=== PATIENT | male | born 1985 | race American Indian/Alaskan Native ===

== ENCOUNTER 2018-02-03 02:56 | Inpatient (IN) | payer SELFPAY ==
[2018-02-03] MEDS ORDERED: ASPIRIN PO ONE (03:28)
[2018-02-03 03:52] LABS: Basophils # (Auto) 0.1 K/mm3 (0.0-0.1); Basophils % (Auto) 1.2 % (0.0-1.8); Eosinophils # (Auto) 0.3 K/mm3 (0.0-0.4); Eosinophils % (Auto) 4.9 % (0.0-4.3); Hematocrit 44.4 % (35.5-45.6); Hemoglobin 14.3 gm/dl (11.8-15.2); Lymphocytes # (Auto) 1.7 K/mm3 (1.2-5.4); Lymphocytes % (Auto) 23.8 % (13.4-35.0); Mean Corpuscular HGB Conc 32 % (32-34); Mean Corpuscular Hemoglobin 25 pg (28-32); Mean Corpuscular Volume 77 fl (84-94); Monocytes # (Auto) 0.7 K/mm3 (0.0-0.8); Platelet Count 206 K/mm3 (140-440); Red Blood Count 5.76 M/mm3 (3.65-5.03); Red Cell Distribution Width 14.6 % (13.2-15.2)
[2018-02-03] MEDS ORDERED: SUBLIMAZE IV ONE (04:27)
[2018-02-03] MEDS ORDERED: NACL 0.9% 500 ML 500 ML IV ONE (04:27)
[2018-02-03] MEDS ORDERED: NITROSTAT SL PRN (04:27)
--- NOTE | 2018-02-03 04:28 | Emergency Department Report ---
ED Chest Pain HPI - General Chief Complaint: Chest Pain Stated Complaint: CHEST AND ARM PAIN Time Seen by Provider: 02/03/18 04:18 Source: patient, RN notes reviewed Mode of arrival: Ambulatory Limitations: No Limitations - History of Present Illness Initial Comments: This is a 33-year-old gentleman who is not known to this provider previously. His primary care doctor is Dr. Clemente, and he endorses a past medical history of lupus, asthma, occasional tobacco use, and occasional cannabis consumption. The patient presents to the ER with complaint of nontraumatic central chest pain which does not radiate to the back, arms or neck. He also has simultaneous shoulder pain and trapezius pain. He reports his pain worsened at 3:00 this evening/morning. He reports he has shortness of breath but it is nonexertional. He denies DVT, pulmonary embolus risk factors, recent travel, recent surgery, recent immobility. He denies cocaine use. He denies hematemesis, bright red blood per rectum. MD Complaint: chest pain -: Gradual Onset: during rest Pain Location: substernal Severity: moderate Severity scale (0 -10): 7 Quality: tightness, aching, heaviness Consistency: constant Improves With: rest Worsens With: inspiration Aspirin use within the Past 7 Days: (0) No - Related Data On Oral Contraceptives: No Home Medications Medication Instructions Recorded Confirmed Last Taken Prednisone [predniSONE (Blanca) ER 1 mg PO QDAY 02/14/13 02/14/13 Unknown TAB] Previous Rx's Medication Instructions Recorded Last Taken Type Hydrocodone Bit/Acetaminophen 1 each PO Q8HR #20 tablet 02/14/13 Unknown Rx [Lortab 5-500 Tablet] Penicillin Vk [Veetids TAB] 500 mg PO QID #28 tablet 02/14/13 Unknown Rx Pantoprazole [Protonix] 40 mg PO QDAY #30 tablet 02/03/18 Unknown Rx Allergies Allergy/AdvReac Type Severity Reaction Status Date / Time No Known Allergies Allergy Unverified 02/14/13 18:45 Heart Score - HEART Score History: Moderately suspicious EKG: Non-specific Age: < 45 Risk factors: 1-2 risk factors Troponin: < normal limit HEART Score: 3 - Critical Actions Critical Actions: 0-3 pts:0.9-1.7%risk of adverse cardiac event.Candidate for discharge ED Review of Systems ROS: Stated complaint: CHEST AND ARM PAIN Other details as noted in HPI Constitutional: malaise Eyes: denies: eye discharge ENT: denies: epistaxis Respiratory: shortness of breath Cardiovascular: chest pain Gastrointestinal: denies: abdominal pain, nausea, vomiting, hematemesis, melena Genitourinary: denies: dysuria Musculoskeletal: back pain Skin: denies: lesions Neurological: weakness Psychiatric: anxiety Hematological/Lymphatic: denies: easy bleeding ED Past Medical Hx - Past Medical History Hx Asthma: Yes Additional medical history: Lupus - Surgical History Past Surgical History?: Yes Additional Surgical History: umbilical hernia - Social History Smoking Status: Current Every Day Smoker Substance Use Type: Alcohol - Medications Home Medications: Home Medications Medication Instructions Recorded Confirmed Last Taken Type Hydrocodone Bit/Acetaminophen 1 each PO Q8HR #20 tablet 02/14/13 Unknown Rx [Lortab 5-500 Tablet] Penicillin Vk [Veetids TAB] 500 mg PO QID #28 tablet 02/14/13 Unknown Rx Prednisone [predniSONE (Blanca) ER 1 mg PO QDAY 02/14/13 02/14/13 Unknown History TAB] Pantoprazole [Protonix] 40 mg PO QDAY #30 tablet 02/03/18 Unknown Rx ED Physical Exam - General Limitations: No Limitations General appearance: alert, in distress - Head Head exam: Present: atraumatic, normocephalic - Eye Eye exam: Present: normal appearance, EOMI. Absent: nystagmus - ENT ENT exam: Present: normal exam, normal orophraynx, mucous membranes moist, normal external ear exam - Neck Neck exam: Present: normal inspection, full ROM. Absent: tenderness, meningismus - Respiratory Respiratory exam: Present: normal lung sounds bilaterally. Absent: respiratory distress - Cardiovascular Cardiovascular Exam: Present: regular rate, normal rhythm, normal heart sounds. Absent: bradycardia, tachycardia, irregular rhythm, systolic murmur, diastolic murmur, rubs, gallop - GI/Abdominal GI/Abdominal exam: Present: soft, normal bowel sounds. Absent: distended, tenderness, guarding, rebound, rigid, pulsatile mass - Rectal Rectal exam: Present: deferred - Extremities Exam Extremities exam: Present: normal inspection, full ROM, other (2+ pulses noted in the bilateral upper, lower extremities. Compartments soft. No long bony tenderness. The pelvis is stable.). Absent: tenderness, pedal edema, joint swelling, calf tenderness - Back Exam Back exam: Present: normal inspection, full ROM. Absent: tenderness, CVA tenderness (R), paraspinal tenderness, vertebral tenderness - Neurological Exam Neurological exam: Present: alert, oriented X3, CN II-XII intact, other ( Extraocular movements intact. Tongue midline. No facial droop. Facial sensation intact to light touch in the V1, V2, V3 distribution bilaterally. 5 and 5 strength in 4 extremities.. Sensation is intact to light touch in 4 extremities.). Absent: motor sensory deficit - Psychiatric Psychiatric exam: Present: anxious - Skin Skin exam: Present: warm, dry, intact, normal color. Absent: rash ED Course Vital Signs 02/03/18 02/03/18 02/03/18 03:17 03:56 03:57 Temperature 97.8 F Pulse Rate 96 H 101 H 95 H Respiratory 18 26 H 22 Rate Blood Pressure 141/99 Blood Pressure 142/98 [Left] O2 Sat by Pulse 97 98 100 Oximetry 02/03/18 02/03/18 02/03/18 04:00 04:07 04:15 Temperature Pulse Rate 96 H 97 H Respiratory 16 19 Rate Blood Pressure 138/104 144/104 Blood Pressure [Left] O2 Sat by Pulse 99 99 99 Oximetry 02/03/18 02/03/18 02/03/18 05:00 07:00 07:56 Temperature 98.9 F Pulse Rate 95 H 95 H Respiratory 16 12 14 Rate Blood Pressure 147/99 135/85 Blood Pressure 129/85 [Left] O2 Sat by Pulse 99 99 97 Oximetry 02/03/18 02/03/18 02/03/18 08:00 08:09 08:46 Temperature Pulse Rate 94 H Respiratory 13 14 13 Rate Blood Pressure 125/86 124/88 Blood Pressure [Left] O2 Sat by Pulse 96 97 Oximetry 02/03/18 09:16 Temperature Pulse Rate 94 H Respiratory 16 Rate Blood Pressure 115/87 Blood Pressure [Left] O2 Sat by Pulse Oximetry - Reevaluation(s) Reevaluation #1: 02/03/18 04:33 Differential diagnosis, including but not limited to: GERD, gastritis, hiatal hernia, pneumonia, pulmonary embolus, acute coronary syndrome Assessment and plan: 33-year-old gentleman with lupus, with chest pain and shortness of breath. X-ray of the chest pending, CT scan of the chest pending. EKG nonspecific. We will treat his symptoms. We will reassess after imaging. 02/03/18 05:55 Reevaluation #2: 02/03/18 05:55 X-ray of the chest suggest pneumonia. CT scan of the chest interpretation is pending. Care is transferred to the oncoming physician, Dr. Hollins. If CT scan demonstrates pneumonia, and no other obvious complications, I would consider the patient suitable for trial of outpatient oral antibiotics. If pulmonary embolus is identified, or no obvious etiology for chest pain is identified, would admit the patient for further evaluation. YULISSA score - Yulissa Score Age > 65: (0) No Aspirin use within the Past 7 Days: (0) No 3 or more CAD Risk Factors: (0) No 2 or more Angina events in past 24 hrs: (0) No Known CAD with more than 50% Stenosis: (0) No Elevated Cardiac Markers: (0) No ST Deviation Greater than 0.5mm: (0) No YULISSA Score: 0 ED Medical Decision Making - Lab Data Result diagrams: 02/03/18 03:41 02/03/18 11:34 Vital Signs 02/03/18 02/03/18 02/03/18 03:17 03:56 03:57 Temperature 97.8 F Pulse Rate 96 H 101 H 95 H Respiratory 18 26 H 22 Rate Blood Pressure 141/99 Blood Pressure 142/98 [Left] O2 Sat by Pulse 97 98 100 Oximetry 02/03/18 02/03/18 04:00 04:07 Temperature Pulse Rate 96 H Respiratory 16 Rate Blood Pressure 138/104 Blood Pressure [Left] O2 Sat by Pulse 99 99 Oximetry Lab Results 02/03/18 Range/Units 03:41 WBC 7.1 (4.5-11.0) K/mm3 RBC 5.76 H (3.65-5.03) M/mm3 Hgb 14.3 (11.8-15.2) gm/dl Hct 44.4 (35.5-45.6) % MCV 77 L (84-94) fl MCH 25 L (28-32) pg MCHC 32 (32-34) % RDW 14.6 (13.2-15.2) % Plt Count 206 (140-440) K/mm3 Lymph % (Auto) 23.8 (13.4-35.0) % [place] % (Auto) 10.0 H (0.0-7.3) % Eos % (Auto) 4.9 H (0.0-4.3) % Baso % (Auto) 1.2 (0.0-1.8) % Lymph # 1.7 (1.2-5.4) K/mm3 [place] # 0.7 (0.0-0.8) K/mm3 Eos # 0.3 (0.0-0.4) K/mm3 Baso # 0.1 (0.0-0.1) K/mm3 Seg Neutrophils % 60.1 (40.0-70.0) % Seg Neutrophils # 4.2 (1.8-7.7) K/mm3 - EKG Data -: EKG Interpreted by Me EKG shows normal: sinus rhythm Rate: normal - EKG Data When compared to previous EKG there are: previous EKG unavailable 02/03/18 04:33 Sinus, 98 bpm, normal axis, QTC prolonged, motion artifact, Nonspecific interventricular conduction delay suggested on V2. , abnormal EKG, not a STEMI. - Radiology Data Radiology results: pending Critical care attestation.: If time is entered above; I have spent that time in minutes in the direct care of this critically ill patient, excluding procedure time. ED Disposition Clinical Impression: Chest pain Disposition: OP ADMIT IP TO THIS HOSP Is pt being admited?: Yes Does the pt Need Aspirin: Yes Condition: Good
--- NOTE | 2018-02-03 04:44 | XRay Report ---
FINAL REPORT EXAM: XR CHEST 1V AP HISTORY: cp dyspnea TECHNIQUE: AP portable view(s) of the chest obtained. PRIORS: None. FINDINGS: No mediastinal shift. Cardiac silhouette is not enlarged. Hypoaeration of the lungs. Ill-defined bibasilar opacities. No pneumothorax or effusion. No acute skeletal findings. IMPRESSION: Ill-defined bibasilar opacities may be due to atelectasis or infection.
[2018-02-03 04:47] LABS: BUN/Creatinine Ratio 13; Blood Urea Nitrogen 13 mg/dL (9-20); Calcium 8.9 mg/dL (8.4-10.2); Hemolysis Index 16
[2018-02-03 05:09] LABS: INR 0.87 (0.87-1.13)
[2018-02-03 05:10] LABS: Partial Thromboplastin Time 22.5 Sec. (24.2-36.6)
--- NOTE | 2018-02-03 06:27 | Cat Scan Report ---
FINAL REPORT EXAM: CT ANGIO CHEST HISTORY: cp dyspnea, hx of lupus TECHNIQUE: CT imaging obtained through the chest in pulmonary angiographic phase following intravenous administration of contrast. Transaxial, Coronal and sagittal reformats with maximal intensity projections are provided. PRIORS: Chest radiograph of the same date FINDINGS: Normal caliber main pulmonary artery. No central or segmental pulmonary embolism. Opacification of smaller peripheral pulmonary arterial branches is insufficient for more detailed evaluation. No pericardial effusion. Heart size is within normal limits. Thoracic aorta is normal in course and caliber. No periaortic fluid or stranding. No pneumothorax, effusion or focal airspace disease. Bibasilar atelectasis. The central airways are patent. No bronchiectasis. Imaged portion of the upper abdomen is unremarkable. The superficial soft tissues are unremarkable. No acute bony abnormality or worrisome osseous lesions identified. IMPRESSION: No central or segmental pulmonary embolism or other acute finding. Hypoaeration of the lungs/bibasilar atelectasis.
--- NOTE | 2018-02-03 07:54 | Emergency Department Report ---
Blank Doc - Documentation Documentation: Patient's workup is essentially negative so far. He states the chest pain occurred at rest at about 1:00. It radiated to his shoulders and he did have some numbness in his left arm. He is on prednisone and Plaquenil for lupus. He states he's had this once before but was not admitted and has never had a stress test. I think it be worthwhile to do so at this point. Discussed with hospitalist and the patient was admitted. He was asymptomatic at the time of my encounter.
[2018-02-03 07:56] LABS: Alanine Aminotransferase 11 units/L (7-56); Albumin 3.6 g/dL (3.9-5)
[2018-02-03 08:14] LABS: Bilirubin,Direct < 0.2 mg/dL (0-0.2); Creatine Kinase MB < 1.0 ng/mL (0.0-4.0)
[2018-02-03] MEDS ORDERED: ZOFRAN IV PRN (10:18)
[2018-02-03] MEDS ORDERED: SODIUM CHLORIDE FLUSH SYRINGE 10 ML IV PRN (10:18)
[2018-02-03] MEDS ORDERED: TYLENOL PO PRN (10:18)
[2018-02-03] MEDS ORDERED: LEXISCAN IV ONE ×2 (12:08)
[2018-02-03 13:20] LABS: BUN/Creatinine Ratio 12; Blood Urea Nitrogen 11 mg/dL (9-20); Calcium 8.9 mg/dL (8.4-10.2); Hemolysis Index 10
[2018-02-03] MEDS: NORCO 5/325 PO SCH ×2 (14:00→21:27)
[2018-02-03] MEDS ORDERED: NON-FORMULARY (Hydrocodone Bit/Acetaminophen [Lortab 5-500 Tablet] 1 EACH) PO SCH (14:00)
--- NOTE | 2018-02-03 16:35 | History and Physical Report ---
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 Medications and Allergies Allergies Allergy/AdvReac Type Severity Reaction Status Date / Time No Known Allergies Allergy Unverified 02/14/13 18:45 Home Medications Medication Instructions Recorded Confirmed Last Taken Type Hydrocodone Bit/Acetaminophen 1 each PO Q8HR #20 tablet 02/14/13 Unknown Rx [Lortab 5-500 Tablet] Penicillin Vk [Veetids TAB] 500 mg PO QID #28 tablet 02/14/13 Unknown Rx Prednisone [predniSONE (Blanca) ER 1 mg PO QDAY 02/14/13 02/14/13 Unknown History TAB] Pantoprazole [Protonix] 40 mg PO QDAY #30 tablet 02/03/18 Unknown Rx Active Meds: Active Medications Acetaminophen (Tylenol) 650 mg PO Q4H PRN PRN Reason: Pain MILD(1-3)/Fever >100.5/NAIR Acetaminophen/Hydrocodone Bitart ([place] 5/325) 1 each PO Q8HR HONORIO Aspirin (Baby Aspirin) 81 mg PO QDAY HONORIO Nitroglycerin (Nitrostat) 0.4 mg SL .Q5MIN PRN PRN Reason: Chest Pain Ondansetron HCl (Zofran) 4 mg IV Q8H PRN PRN Reason: Nausea And Vomiting Sodium Chloride (Sodium Chloride Flush Syringe 10 Ml) 10 ml IV BID HONORIO Sodium Chloride (Sodium Chloride Flush Syringe 10 Ml) 10 ml IV PRN PRN PRN Reason: LINE FLUSH Review of Systems All systems: negative (10 point ROS is otherwise negative) Constitutional: no weight loss Ears, nose, mouth and throat: no ear pain Cardiovascular: no orthopnea Respiratory: no cough Gastrointestinal: no nausea, no vomiting Genitourinary Male: no dysuria Rectal: no pain Musculoskeletal: no neck stiffness Integumentary: no rash Neurological: no head injury Psychiatric: no anxiety Endocrine: no cold intolerance Allergic/Immunologic: no urticaria Exam - Constitutional Vitals: Temp Pulse Resp BP Pulse Ox 98.9 F 109 H 16 149/99 97 02/03/18 07:56 02/03/18 12:28 02/03/18 09:16 02/03/18 12:28 02/03/18 08:09 General appearance: Present: mild distress, well-nourished - EENT Eyes: Present: PERRL ENT: hearing intact, clear oral mucosa - Neck Neck: Present: supple, normal ROM - Respiratory Respiratory effort: normal Respiratory: bilateral: CTA - Cardiovascular Heart Sounds: Present: S1 & S2. Absent: rub, click - Extremities Extremities: pulses symmetrical, No edema Peripheral Pulses: within normal limits - Abdominal General gastrointestinal: Present: soft, non-tender, non-distended, normal bowel sounds Male genitourinary: Present: normal - Integumentary Integumentary: Present: clear, warm, dry - Musculoskeletal Musculoskeletal: gait normal, strength equal bilaterally - Psychiatric Psychiatric: appropriate mood/affect, intact judgment & insight - Neurologic Neurologic: CNII-XII intact, moves all extremities Results - Labs CBC & Chem 7: 02/03/18 03:41 02/03/18 11:34 Labs: Laboratory Last Values WBC 7.1 K/mm3 (4.5-11.0) 02/03/18 03:41 RBC 5.76 M/mm3 (3.65-5.03) H 02/03/18 03:41 Hgb 14.3 gm/dl (11.8-15.2) 02/03/18 03:41 Hct 44.4 % (35.5-45.6) 02/03/18 03:41 MCV 77 fl (84-94) L 02/03/18 03:41 MCH 25 pg (28-32) L 02/03/18 03:41 MCHC 32 % (32-34) 02/03/18 03:41 RDW 14.6 % (13.2-15.2) 02/03/18 03:41 Plt Count 206 K/mm3 (140-440) 02/03/18 03:41 Lymph % (Auto) 23.8 % (13.4-35.0) 02/03/18 03:41 [place] % (Auto) 10.0 % (0.0-7.3) H 02/03/18 03:41 Eos % (Auto) 4.9 % (0.0-4.3) H 02/03/18 03:41 Baso % (Auto) 1.2 % (0.0-1.8) 02/03/18 03:41 Lymph # 1.7 K/mm3 (1.2-5.4) 02/03/18 03:41 [place] # 0.7 K/mm3 (0.0-0.8) 02/03/18 03:41 Eos # 0.3 K/mm3 (0.0-0.4) 02/03/18 03:41 Baso # 0.1 K/mm3 (0.0-0.1) 02/03/18 03:41 Seg Neutrophils % 60.1 % (40.0-70.0) 02/03/18 03:41 Seg Neutrophils # 4.2 K/mm3 (1.8-7.7) 02/03/18 03:41 ESR 6 mm/Hr (0-20) 02/03/18 06:34 PT 12.3 Sec. (12.2-14.9) 02/03/18 04:43 INR 0.87 (0.87-1.13) 02/03/18 04:43 APTT 22.5 Sec. (24.2-36.6) L 02/03/18 04:43 D-Dimer 179.46 ng/mlDDU (0-234) 02/03/18 06:34 Sodium 138 mmol/L (137-145) 02/03/18 11:34 Potassium 3.8 mmol/L (3.6-5.0) 02/03/18 11:34 Chloride 97.4 mmol/L (98-107) L 02/03/18 11:34 Carbon Dioxide 28 mmol/L (22-30) 02/03/18 11:34 Anion Gap 16 mmol/L 02/03/18 11:34 BUN 11 mg/dL (9-20) 02/03/18 11:34 Creatinine 0.9 mg/dL (0.8-1.5) 02/03/18 11:34 Estimated GFR > 60 ml/min 02/03/18 11:34 BUN/Creatinine Ratio 12 % 02/03/18 11:34 Glucose 74 mg/dL (75-100) L 02/03/18 11:34 Lactic Acid 1.10 mmol/L (0.7-2.0) 02/03/18 06:34 Calcium 8.9 mg/dL (8.4-10.2) 02/03/18 11:34 Magnesium 1.60 mg/dL (1.7-2.3) L 02/03/18 06:34 Total Bilirubin 0.20 mg/dL (0.1-1.2) 02/03/18 06:34 Direct Bilirubin < 0.2 mg/dL (0-0.2) 02/03/18 06:34 Indirect Bilirubin 0.0 mg/dL 02/03/18 06:34 AST 17 units/L (5-40) 02/03/18 06:34 ALT 11 units/L (7-56) 02/03/18 06:34 Alkaline Phosphatase 75 units/L (35-129) 02/03/18 06:34 Total Creatine Kinase 41 units/L (55-170) L 02/03/18 06:34 CK-MB (CK-2) < 1.0 ng/mL (0.0-4.0) 02/03/18 06:34 CK-MB (CK-2) Rel Index 2.4 (0-4) 02/03/18 06:34 Troponin T < 0.010 ng/mL (0.00-0.029) 02/03/18 Unknown C-Reactive Protein 1.00 mg/dL (0.00-1.30) 02/03/18 06:34 NT-Pro-B Natriuret Pep 31.86 pg/mL (0-450) 02/03/18 06:34 Total Protein 6.7 g/dL (6.3-8.2) 02/03/18 06:34 Albumin 3.6 g/dL (3.9-5) L 02/03/18 06:34 Albumin/Globulin Ratio 1.2 % 02/03/18 06:34 Assessment and Plan Assessment and plan: 33M with pmh of SLE who pw atypical CP/epigastric pain, he is on daily steroids Atypical CP; stress test planned epigastric pain, consult GI for possible EGD, concern for gastritis vs esophagitis, is on chronic daily steroids SLE; continue steroids Plan of care discussed with patient/family: Yes
[2018-02-03] MEDS ORDERED: ALUM-MAG HYDROX-SIMETH 200-200-20MG/5ML PO PRN (16:39)
[2018-02-03] MEDS: PROTONIX PO SCH (21:27)
[2018-02-03] MEDS: PEPCID IV SCH (21:27)
[2018-02-03] MEDS: SODIUM CHLORIDE FLUSH SYRINGE 10 ML IV SCH (21:28)
[2018-02-03] MEDS ORDERED: PROTONIX IV SCH (22:00)
--- NOTE | 2018-02-04 00:49 | Treadmill Report ---
A 33-year-old. ROOM NUMBER: [id number] Resting images revealed homogeneous radioisotope activity. On post-Lexiscan images, again there was homogeneous radioisotope uptake noted. On gated scan, the ejection fraction was 69% without any segmental motion abnormality. There is no transient ischemic dilatation. IMPRESSION: This test is negative for ischemia. JOB# [id number] MATEO/HELEN
[2018-02-04] MEDS: NORCO 5/325 PO SCH ×3 (06:22→21:40)
--- NOTE | 2018-02-04 10:27 | Gastroenterology Consultation ---
History of Present Illness - Reason for Consult Consult date: 02/04/18 Chest Pain Requesting physician: KIMO DIAZ - History of Present Illness Mr Teresa is a 33 y/o male admitted with a 48 hr hx of epigastric/ chest pain with radiation to the left shoulder. No N/V. Pain also increases with deep breaths. No prior hx of cardiac disease. He denies reflux, weight loss or abdominal pain. No NSAID use. Stress test negative for ischemia, Echo LVEF of 55-60%. No reports of blood per stool or N/V. The patient has a hx of Lupus and Asthma. Occasional tobacco useWe have been asked to assist in management of chest pain. Past History Past Medical History: other (asthma, lupus) Past Surgical History: No surgical history Social history: lives with family, smoking Family history: no significant family history Medications and Allergies Allergies Allergy/AdvReac Type Severity Reaction Status Date / Time No Known Allergies Allergy Unverified 02/14/13 18:45 Home Medications Medication Instructions Recorded Confirmed Last Taken Type No Known Home Medications [No 02/04/18 02/04/18 Unknown History Reported Home Medications] Active Meds: Active Medications Acetaminophen (Tylenol) 650 mg PO Q4H PRN PRN Reason: Pain MILD(1-3)/Fever >100.5/NAIR Acetaminophen/Hydrocodone Bitart ([place] 5/325) 1 each PO Q8HR [facility] Last Admin: 02/04/18 06:22 Dose: 1 each Al Hydrox/Mg Hydrox/Simethicone (Alum-Mag Hydrox-Simeth 553-396-24my/5ml) 30 ml PO Q4H PRN PRN Reason: Indigestion Aspirin (Baby Aspirin) 81 mg PO QDAY [facility] Famotidine (Pepcid) 20 mg IV BID [facility] Last Admin: 02/03/18 21:27 Dose: 20 mg Nitroglycerin (Nitrostat) 0.4 mg SL .Q5MIN PRN PRN Reason: Chest Pain Ondansetron HCl (Zofran) 4 mg IV Q8H PRN PRN Reason: Nausea And Vomiting Pantoprazole Sodium (Protonix) 40 mg PO QDAY [facility] Last Admin: 02/03/18 21:27 Dose: 40 mg Sodium Chloride (Sodium Chloride Flush Syringe 10 Ml) 10 ml IV BID [facility] Last Admin: 02/03/18 21:28 Dose: 10 ml Sodium Chloride (Sodium Chloride Flush Syringe 10 Ml) 10 ml IV PRN PRN PRN Reason: LINE FLUSH Review of Systems - Review of Systems All systems: negative Cardiovascular: chest pain Exam - Constitutional Vital Signs: Temp Pulse Resp BP Pulse Ox 98.0 F 95 H 18 138/99 95 02/04/18 08:23 02/04/18 08:23 02/04/18 08:23 02/04/18 08:23 02/04/18 08:23 General appearance: no acute distress - EENT Eyes: EOM intact ENT: hearing intact - Neck Neck: supple - Respiratory Respiratory: bilateral: CTA - Cardiovascular Rhythm: regular Heart Sounds: Present: S1 & S2 Extremities: Full ROM - Gastrointestinal General gastrointestinal: Present: soft, non-tender, non-distended, normal bowel sounds - Integumentary Integumentary: Present: warm, dry - Neurologic Neurological: alert and oriented x3 - Psychiatric Psychiatric: appropriate mood/affect - Labs CBC & Chem 7: 02/03/18 03:41 02/03/18 11:34 Lab Results: Laboratory Results - last 24 hr 02/03/18 11:34 Sodium 138 Potassium 3.8 Chloride 97.4 L Carbon Dioxide 28 Anion Gap 16 BUN 11 Creatinine 0.9 Estimated GFR > 60 BUN/Creatinine Ratio 12 Glucose 74 L Calcium 8.9 Assessment and Plan 1. Chest Pain - Stress Test negative for ischemia - ECHO LVEF 55-60% - CTA chest negative -Plan for EGD today, Keep NPO 2. Hx of Lupus
[2018-02-04] MEDS: BABY ASPIRIN PO SCH (10:48)
[2018-02-04] MEDS: PEPCID IV SCH ×2 (10:48→21:40)
[2018-02-04] MEDS: SODIUM CHLORIDE FLUSH SYRINGE 10 ML IV SCH ×2 (10:49→22:15)
--- NOTE | 2018-02-04 14:49 | Progress Note ---
Hospitalist Physical - Constitutional Vitals: Temp Pulse Resp BP Pulse Ox 98.1 F 79 18 113/73 97 02/04/18 12:24 02/04/18 12:00 02/04/18 12:00 02/04/18 12:00 02/04/18 12:00 General appearance: Present: mild distress, well-nourished Results - Labs CBC & Chem 7: 02/03/18 03:41 02/03/18 11:34 Labs: Laboratory Last Values WBC 7.1 K/mm3 (4.5-11.0) 02/03/18 03:41 RBC 5.76 M/mm3 (3.65-5.03) H 02/03/18 03:41 Hgb 14.3 gm/dl (11.8-15.2) 02/03/18 03:41 Hct 44.4 % (35.5-45.6) 02/03/18 03:41 MCV 77 fl (84-94) L 02/03/18 03:41 MCH 25 pg (28-32) L 02/03/18 03:41 MCHC 32 % (32-34) 02/03/18 03:41 RDW 14.6 % (13.2-15.2) 02/03/18 03:41 Plt Count 206 K/mm3 (140-440) 02/03/18 03:41 Lymph % (Auto) 23.8 % (13.4-35.0) 02/03/18 03:41 [place] % (Auto) 10.0 % (0.0-7.3) H 02/03/18 03:41 Eos % (Auto) 4.9 % (0.0-4.3) H 02/03/18 03:41 Baso % (Auto) 1.2 % (0.0-1.8) 02/03/18 03:41 Lymph # 1.7 K/mm3 (1.2-5.4) 02/03/18 03:41 [place] # 0.7 K/mm3 (0.0-0.8) 02/03/18 03:41 Eos # 0.3 K/mm3 (0.0-0.4) 02/03/18 03:41 Baso # 0.1 K/mm3 (0.0-0.1) 02/03/18 03:41 Seg Neutrophils % 60.1 % (40.0-70.0) 02/03/18 03:41 Seg Neutrophils # 4.2 K/mm3 (1.8-7.7) 02/03/18 03:41 ESR 6 mm/Hr (0-20) 02/03/18 06:34 PT 12.3 Sec. (12.2-14.9) 02/03/18 04:43 INR 0.87 (0.87-1.13) 02/03/18 04:43 APTT 22.5 Sec. (24.2-36.6) L 02/03/18 04:43 D-Dimer 179.46 ng/mlDDU (0-234) 02/03/18 06:34 Sodium 138 mmol/L (137-145) 02/03/18 11:34 Potassium 3.8 mmol/L (3.6-5.0) 02/03/18 11:34 Chloride 97.4 mmol/L (98-107) L 02/03/18 11:34 Carbon Dioxide 28 mmol/L (22-30) 02/03/18 11:34 Anion Gap 16 mmol/L 02/03/18 11:34 BUN 11 mg/dL (9-20) 02/03/18 11:34 Creatinine 0.9 mg/dL (0.8-1.5) 02/03/18 11:34 Estimated GFR > 60 ml/min 02/03/18 11:34 BUN/Creatinine Ratio 12 % 02/03/18 11:34 Glucose 74 mg/dL (75-100) L 02/03/18 11:34 Lactic Acid 1.10 mmol/L (0.7-2.0) 02/03/18 06:34 Calcium 8.9 mg/dL (8.4-10.2) 02/03/18 11:34 Magnesium 1.60 mg/dL (1.7-2.3) L 02/03/18 06:34 Total Bilirubin 0.20 mg/dL (0.1-1.2) 02/03/18 06:34 Direct Bilirubin < 0.2 mg/dL (0-0.2) 02/03/18 06:34 Indirect Bilirubin 0.0 mg/dL 02/03/18 06:34 AST 17 units/L (5-40) 02/03/18 06:34 ALT 11 units/L (7-56) 02/03/18 06:34 Alkaline Phosphatase 75 units/L (35-129) 02/03/18 06:34 Total Creatine Kinase 41 units/L (55-170) L 02/03/18 06:34 CK-MB (CK-2) < 1.0 ng/mL (0.0-4.0) 02/03/18 06:34 CK-MB (CK-2) Rel Index 2.4 (0-4) 02/03/18 06:34 Troponin T < 0.010 ng/mL (0.00-0.029) 02/03/18 Unknown C-Reactive Protein 1.00 mg/dL (0.00-1.30) 02/03/18 06:34 NT-Pro-B Natriuret Pep 31.86 pg/mL (0-450) 02/03/18 06:34 Total Protein 6.7 g/dL (6.3-8.2) 02/03/18 06:34 Albumin 3.6 g/dL (3.9-5) L 02/03/18 06:34 Albumin/Globulin Ratio 1.2 % 02/03/18 06:34
[2018-02-04] MEDS ORDERED: PROVENTIL IH PRN (17:21)
[2018-02-04] MEDS: PROTONIX PO SCH ×2 (19:39→21:41)
[2018-02-05] MEDS: NORCO 5/325 PO SCH ×2 (05:48→15:06)
[2018-02-05] MEDS ORDERED: HumaLOG SUB-Q SCH (07:30)
[2018-02-05] MEDS: SODIUM CHLORIDE FLUSH SYRINGE 10 ML IV SCH (10:00)
[2018-02-05] MEDS: BABY ASPIRIN PO SCH (10:00)
[2018-02-05] MEDS: PROTONIX PO SCH (10:00)
--- NOTE | 2018-02-05 10:58 | Discharge Summary ---
Providers - Providers Date of Admission: 02/03/18 07:54 Attending physician: KIMO DIAZ MD 02/03/18 16:35 Consult to Physician [CONS] Routine Comment: Consulting Provider: PAIGE PALMA Physician Instructions: Reason For Exam: Epigastric pain, severe Primary care physician: SAMY KELLY MD Hospitalization Condition: Good Exam - Constitutional Vitals: Temp Pulse Resp BP Pulse Ox 98.2 F 85 18 126/92 100 02/05/18 08:20 02/05/18 08:20 02/05/18 08:20 02/05/18 08:20 02/05/18 08:20 Plan Follow up with: SAMY KELLY MD [Primary Care Provider] - 3-5 Days
[2018-02-05] MEDS ORDERED: WATER FOR IRRIG STERILE IR ONE (12:57)
[2018-02-05] MEDS ORDERED: NACL 0.9% 1000 ML 1,000 ML IV SCH (13:00)
[2018-02-05] MEDS ORDERED: XYLOCAINE 1% 20 mL ONE (13:13)
[2018-02-05] MEDS ORDERED: VERSED ONE (13:14)
[2018-02-05] MEDS ORDERED: DIPRIVAN 10 MG/ML IV ONE (13:14)
--- NOTE | 2018-02-05 13:20 | Post Operative Note ---
Pre-op diagnosis: Epigastric Pain Post-op diagnosis: other (Gastric ulcer) Findings: 1. 4mm white-based gastric ulcer; cold bx of margin 2. Otherwise normal upper GI tract Procedure: EGD with cold biopsy Anesthesia: MAC Surgeon: PAIGE PALMA Estimated blood loss: minimal Pathology: list (1. Gastric antrum ulcer) Specimen disposition: to lab Condition: stable Disposition: floor (Recs: 1. OK to d/c home. 2. Protonix daily therapy (PO QD) . 3. Avoid NSAIDs. 4. F/U pathology in office; treat H pylori if present.)
--- NOTE | 2018-02-05 13:28 | Anesthesia Day of Surgery ---
Anesthesia Day of Surgery - Day of Surgery Patient Examined: Yes Patient H&P Reviewed: Yes Patient is NPO: Yes Beta Blockers: No
--- NOTE | 2018-02-05 13:29 | Anesthesia Consultation ---
Anesthesia Consult and Med Hx Date of service: 02/05/18 - Airway Anesthetic Teeth Evaluation: Good ROM Head & Neck: Adequate Mental/Hyoid Distance: Adequate Mallampati Class: Class III Intubation Access Assessment: Good - Pulmonary Exam CTA: No - Cardiac Exam Cardiac Exam: No Murmur - Pre-Operative Health Status ASA Pre-Surgery Classification: ASA2, ASA3 Proposed Anesthetic Plan: MAC - Pulmonary Hx Asthma: Yes COPD: No Hx Pneumonia: Yes - Endocrine Hx End Stage Renal Disease: No
[2018-02-05 13:59] VITALS: BP 136/91
--- NOTE | 2018-02-05 14:02 | Progress Note ---
Hospitalist Physical - Constitutional Vitals: Temp Pulse Resp BP Pulse Ox 98.2 F 88 22 136/91 97 02/05/18 13:20 02/05/18 13:50 02/05/18 13:50 02/05/18 13:50 02/05/18 13:50 General appearance: Present: mild distress, well-nourished Results - Labs CBC & Chem 7: 02/03/18 03:41 02/03/18 11:34 Labs: Laboratory Last Values WBC 7.1 K/mm3 (4.5-11.0) 02/03/18 03:41 RBC 5.76 M/mm3 (3.65-5.03) H 02/03/18 03:41 Hgb 14.3 gm/dl (11.8-15.2) 02/03/18 03:41 Hct 44.4 % (35.5-45.6) 02/03/18 03:41 MCV 77 fl (84-94) L 02/03/18 03:41 MCH 25 pg (28-32) L 02/03/18 03:41 MCHC 32 % (32-34) 02/03/18 03:41 RDW 14.6 % (13.2-15.2) 02/03/18 03:41 Plt Count 206 K/mm3 (140-440) 02/03/18 03:41 Lymph % (Auto) 23.8 % (13.4-35.0) 02/03/18 03:41 [place] % (Auto) 10.0 % (0.0-7.3) H 02/03/18 03:41 Eos % (Auto) 4.9 % (0.0-4.3) H 02/03/18 03:41 Baso % (Auto) 1.2 % (0.0-1.8) 02/03/18 03:41 Lymph # 1.7 K/mm3 (1.2-5.4) 02/03/18 03:41 [place] # 0.7 K/mm3 (0.0-0.8) 02/03/18 03:41 Eos # 0.3 K/mm3 (0.0-0.4) 02/03/18 03:41 Baso # 0.1 K/mm3 (0.0-0.1) 02/03/18 03:41 Seg Neutrophils % 60.1 % (40.0-70.0) 02/03/18 03:41 Seg Neutrophils # 4.2 K/mm3 (1.8-7.7) 02/03/18 03:41 ESR 6 mm/Hr (0-20) 02/03/18 06:34 PT 12.3 Sec. (12.2-14.9) 02/03/18 04:43 INR 0.87 (0.87-1.13) 02/03/18 04:43 APTT 22.5 Sec. (24.2-36.6) L 02/03/18 04:43 D-Dimer 179.46 ng/mlDDU (0-234) 02/03/18 06:34 Sodium 138 mmol/L (137-145) 02/03/18 11:34 Potassium 3.8 mmol/L (3.6-5.0) 02/03/18 11:34 Chloride 97.4 mmol/L (98-107) L 02/03/18 11:34 Carbon Dioxide 28 mmol/L (22-30) 02/03/18 11:34 Anion Gap 16 mmol/L 02/03/18 11:34 BUN 11 mg/dL (9-20) 02/03/18 11:34 Creatinine 0.9 mg/dL (0.8-1.5) 02/03/18 11:34 Estimated GFR > 60 ml/min 02/03/18 11:34 BUN/Creatinine Ratio 12 % 02/03/18 11:34 Glucose 74 mg/dL (75-100) L 02/03/18 11:34 Lactic Acid 1.10 mmol/L (0.7-2.0) 02/03/18 06:34 Calcium 8.9 mg/dL (8.4-10.2) 02/03/18 11:34 Magnesium 1.60 mg/dL (1.7-2.3) L 02/03/18 06:34 Total Bilirubin 0.20 mg/dL (0.1-1.2) 02/03/18 06:34 Direct Bilirubin < 0.2 mg/dL (0-0.2) 02/03/18 06:34 Indirect Bilirubin 0.0 mg/dL 02/03/18 06:34 AST 17 units/L (5-40) 02/03/18 06:34 ALT 11 units/L (7-56) 02/03/18 06:34 Alkaline Phosphatase 75 units/L (35-129) 02/03/18 06:34 Total Creatine Kinase 41 units/L (55-170) L 02/03/18 06:34 CK-MB (CK-2) < 1.0 ng/mL (0.0-4.0) 02/03/18 06:34 CK-MB (CK-2) Rel Index 2.4 (0-4) 02/03/18 06:34 Troponin T < 0.010 ng/mL (0.00-0.029) 02/03/18 Unknown C-Reactive Protein 1.00 mg/dL (0.00-1.30) 02/03/18 06:34 NT-Pro-B Natriuret Pep 31.86 pg/mL (0-450) 02/03/18 06:34 Total Protein 6.7 g/dL (6.3-8.2) 02/03/18 06:34 Albumin 3.6 g/dL (3.9-5) L 02/03/18 06:34 Albumin/Globulin Ratio 1.2 % 02/03/18 06:34
--- NOTE | 2018-02-05 19:27 | Operative Report ---
PROCEDURE PERFORMED: Esophagogastroduodenoscopy with cold biopsy. PREOPERATIVE DIAGNOSIS: Epigastric pain. POSTOPERATIVE DIAGNOSIS: Gastric ulcer. ENDOSCOPIST: Genaro Whitney MD INSTRUMENT: CompBlue video endoscope. MEDICATIONS: MAC anesthesia by [facility]. COMPLICATIONS: No apparent complications. ESTIMATED BLOOD LOSS: Minimal. SPECIMENS: Gastric antrum ulcer. IMPLANTS: None. ASSISTANTS: None. CONDITION AT COMPLETION: Stable. TECHNIQUE: The patient was informed of the risks and benefits of the procedure. He signed the informed consent to proceed. He was placed in left lateral decubitus position. The above sedative medications were given. His vital signs remained stable throughout the procedure. The instrument was advanced from the mouth to the second portion of the duodenum under direct visualization. At that point, the bowel was insufflated and the endoscope was slowly withdrawn. FINDINGS: 1. Normal duodenum. 2. A 4 mm white-based gastric ulcer; cold biopsies taken of the margin. 3. Otherwise normal stomach. 4. Normal esophagus. RECOMMENDATIONS: 1. Okay to discharge the patient home. 2. Protonix daily therapy, once daily. 3. Avoid nonsteroidal anti-inflammatory drugs. 4. Follow up pathology in the office with treatment of H. pylori if present. JOB# [id number] WHITNEY/HELEN
[2018-02-05] MEDS ORDERED: LANTUS SUB-Q SCH (22:00)
== END 2018-02-05 16:05 | disposition home or self-care (01) | DRG 384 ==
LOC: ED 02:56 → 4A 07:54
PROVIDERS: ADMIT Internal Medicine; ATTEND Internal Medicine
PROC: 0DB68ZX Excision of Stomach, Via Natural or Artificial Opening Endoscopic, Diagnostic (ICD-10-PCS; principal; 2018-02-03)
DX: K25.9 Gastric ulcer, unspecified as acute or chronic, without hemorrhage or perforation (principal); M32.9 Systemic lupus erythematosus, unspecified; R07.89 Other chest pain; J45.909 Unspecified asthma, uncomplicated; Z87.01 Personal history of pneumonia (recurrent)
CPT/HCPCS: 36415; 71045; 71275; 78452; 80048; 80074; 82140; 82550; 82553; 83735; 83880; 84484; 85025; 85379; 85610; 85652; 85730; 86140; 88305; 88342; 93005; 93010; 93017; 93306; 96361; 96374; A9502; J2250; J2704; J2785; J3010; J7040; Q9967

== ENCOUNTER 2018-05-21 10:18 | Inpatient (IN) | payer SELFPAY ==
[2018-05-21] MEDS ORDERED: NORMODYNE IV ONE (10:51)
[2018-05-21 10:53] LABS: Basophils % (Auto) 0.1 % (0.0-1.8); Eosinophils % (Auto) 0.1 % (0.0-4.3); Hematocrit 39.7 % (35.5-45.6); Hemoglobin 12.9 gm/dl (11.8-15.2); Lymphocytes # (Auto) 0.8 K/mm3 (1.2-5.4); Lymphocytes % (Auto) 5.5 % (13.4-35.0); Mean Corpuscular HGB Conc 33 % (32-34); Mean Corpuscular Volume 76 fl (84-94); Monocytes # (Auto) 1.2 K/mm3 (0.0-0.8); Monocytes % (Auto) 7.9 % (0.0-7.3); Platelet Count 402 K/mm3 (140-440); Red Blood Count 5.22 M/mm3 (3.65-5.03); Red Cell Distribution Width 14.7 % (13.2-15.2)
--- NOTE | 2018-05-21 10:55 | Emergency Department Report ---
ED Chest Pain HPI - General Chief Complaint: Chest Pain Stated Complaint: CHEST PAIN/MATTHEW Time Seen by Provider: 05/21/18 10:51 Source: patient Mode of arrival: Ambulatory Limitations: No Limitations - History of Present Illness Initial Comments: 33-year-old male states that he had the acute onset of sharp chest pain which radiates to the dorsal aspect of his back since 6:00 this a.m. He describes the pain as persistent. He presents to the emergency department and started to have some diaphoresis perhaps a half an hour after bed placement. The patient was admitted here in January with the following findings: Assessment and Plan 1. Chest Pain - Stress Test negative for ischemia - ECHO LVEF 55-60% - CTA chest negative -Plan for EGD today, Keep NPO 2. Hx of Lupus He tells me that his pain is very similar to the pain that he experienced which was attributed to a gastric ulcer on EGD. The patient was scoped by Dr. Genaro martínez and found to have a gastric ulcer that was biopsied. Additionally the patient went to [place] Thursday night and stayed until Thursday morning in the emergency department. The patient's pain is pleuritic in nature. It does radiate to the mid dorsal back area. It does not radiate to the arms. The patient denies leg pain or swelling. MD Complaint: chest pain -: Gradual Onset: during rest Pain Location: substernal Pain Radiation: back Severity: severe Quality: sharp Consistency: constant Improves With: nothing Worsens With: nothing re: nausea, diaphoresis, dyspnea. denies: vomting Other Symptoms: denies: cough, fever, syncope Treatments Prior to Arrival: none Aspirin use within the Past 7 Days: (0) No - Related Data Previous Rx's Medication Instructions Recorded Last Taken Type RX: Antacid [Alum-Mag 30 ml PO Q4H PRN #1 bottle 02/05/18 Unknown Rx Hydrox-Simeth [id number]] RX: HYDROcodone/APAP 5-325 [[place] 1 each PO Q8HR #14 tablet 02/05/18 Unknown Rx 5-325 mg TAB] RX: Pantoprazole [Protonix TAB] 40 mg PO QDAY #30 tablet 02/05/18 Unknown Rx Allergies Allergy/AdvReac Type Severity Reaction Status Date / Time No Known Allergies Allergy Unverified 02/14/13 18:45 Heart Score - HEART Score History: Moderately suspicious EKG: Non-specific Age: < 45 Risk factors: 1-2 risk factors Troponin: < normal limit HEART Score: 3 - Critical Actions Critical Actions: 0-3 pts:0.9-1.7%risk of adverse cardiac event.Candidate for discharge ED Review of Systems ROS: Stated complaint: CHEST PAIN/MATTHEW Other details as noted in HPI Constitutional: denies: chills, fever Eyes: denies: eye pain, eye discharge, vision change ENT: denies: ear pain, throat pain Respiratory: shortness of breath. denies: cough, wheezing Cardiovascular: chest pain. denies: palpitations Endocrine: no symptoms reported Gastrointestinal: denies: abdominal pain, nausea, diarrhea Genitourinary: denies: urgency, dysuria Musculoskeletal: denies: back pain, joint swelling, arthralgia Skin: denies: rash, lesions Neurological: denies: headache, weakness, paresthesias Psychiatric: denies: anxiety, depression Hematological/Lymphatic: denies: easy bleeding, easy bruising ED Past Medical Hx - Past Medical History Previous Medical History?: Yes Hx Congestive Heart Failure: No Hx Diabetes: No Hx Asthma: Yes Hx COPD: No Additional medical history: Lupus. Gastric ulcer - Surgical History Past Surgical History?: Yes Additional Surgical History: umbilical hernia - Social History Smoking Status: Never Smoker Substance Use Type: None - Medications Home Medications: Home Medications Medication Instructions Recorded Confirmed Last Taken Type RX: Antacid [Alum-Mag 30 ml PO Q4H PRN #1 bottle 02/05/18 Unknown Rx Hydrox-Simeth [id number]] RX: HYDROcodone/APAP 5-325 [[place] 1 each PO Q8HR #14 tablet 02/05/18 Unknown Rx 5-325 mg TAB] RX: Pantoprazole [Protonix TAB] 40 mg PO QDAY #30 tablet 02/05/18 Unknown Rx ED Physical Exam - General Limitations: Physical Limitation General appearance: other (diaphoretic) - Head Head exam: Present: atraumatic - Eye Eye exam: Present: normal appearance. Absent: PERRL, EOMI - ENT ENT exam: Present: mucous membranes moist - Neck Neck exam: Present: normal inspection. Absent: tenderness, meningismus - Respiratory Respiratory exam: Present: normal lung sounds bilaterally. Absent: respiratory distress - Cardiovascular Cardiovascular Exam: Present: regular rate, normal rhythm. Absent: systolic murmur, diastolic murmur, rubs, gallop - GI/Abdominal GI/Abdominal exam: Present: soft, normal bowel sounds. Absent: distended, tenderness, guarding, rebound, rigid - Extremities Exam Extremities exam: Present: normal inspection - Back Exam Back exam: Present: normal inspection. Absent: CVA tenderness (R), CVA tenderness (L), muscle spasm, paraspinal tenderness, vertebral tenderness - Neurological Exam Neurological exam: Present: oriented X3, CN II-XII intact. Absent: motor sensory deficit - Psychiatric Psychiatric exam: Present: normal affect, anxious ED Course Vital Signs 05/21/18 05/21/18 05/21/18 10:26 10:36 10:46 Temperature 97.7 F Pulse Rate 115 H 113 H 108 H Respiratory 22 27 H 22 Rate Blood Pressure 157/113 151/114 O2 Sat by Pulse 97 99 Oximetry 05/21/18 05/21/18 05/21/18 11:00 11:16 11:30 Temperature Pulse Rate 109 H 103 H 99 H Respiratory 21 21 17 Rate Blood Pressure 151/114 151/114 O2 Sat by Pulse 99 100 98 Oximetry 05/21/18 05/21/18 05/21/18 11:46 12:00 12:29 Temperature Pulse Rate 100 H 99 H 105 H Respiratory 21 15 21 Rate Blood Pressure 143/104 143/104 143/104 O2 Sat by Pulse 99 99 Oximetry 05/21/18 05/21/18 05/21/18 12:30 12:46 13:00 Temperature Pulse Rate 101 H 105 H 105 H Respiratory 21 23 17 Rate Blood Pressure 138/95 138/95 138/95 O2 Sat by Pulse 98 99 99 Oximetry 05/21/18 05/21/18 05/21/18 13:16 13:30 13:46 Temperature Pulse Rate 107 H 107 H Respiratory 18 21 Rate Blood Pressure 128/98 148/109 138/95 O2 Sat by Pulse 98 97 98 Oximetry 05/21/18 14:00 Temperature Pulse Rate Respiratory Rate Blood Pressure 138/95 O2 Sat by Pulse 94 Oximetry - Reevaluation(s) Reevaluation #1: The patient was treated with labetalol and morphine and Zofran. His diaphoresis did improve. His EKG showed J-point elevation in the high lateral leads. Serial EKGs showed slightly worse but nonspecific repolarization abnormality. These EKGs were tech stated to the arbor press operator cotton acreage measurer for intervention, Dr. Gonzáles who stated that they were nonspecific. We discussed the case further with the arbor press operator. I proceeded with an emergent CT angiogram of the patient's chest. This indicated a "large" amount of pericardial fluid per Dr. Royal the radiologist. I obtained a stat echocardiogram. Dr. Gonzáles came to the emergency department and reviewed the echocardiogram. He stated that the pericardial fluid was "minimal". He did not report to me any RA or RV flattening. Therefore, the patient does not have tamponade physiology. Dr. Gonzáles commended that the patient be admitted here and receive Toradol. I discussed the case in detail with the hospitalist Dr. Torres. He stated that he would discuss the admission with Dr. Gonzáles. the patient does remain stable at this time. We do not have a impersonator character on staff at this facility nor cardiovascular surgery. I do not believe that the patient has any emergent need for any procedure. I am leaving the disposition of this patient to the hospitalist Dr. Torres and small business consultant Dr. Gonzáles. I will be available for further assistance as called upon. 05/21/18 13:49 FRANCO score - Franco Score Age > 65: (0) No Aspirin use within the Past 7 Days: (0) No 3 or more CAD Risk Factors: (0) No 2 or more Angina events in past 24 hrs: (0) No Known CAD with more than 50% Stenosis: (0) No Elevated Cardiac Markers: (0) No ST Deviation Greater than 0.5mm: (0) No FRANCO Score: 0 ED Medical Decision Making - Lab Data Result diagrams: 05/21/18 10:42 05/21/18 11:37 Laboratory Results - last 24 hr 05/21/18 10:42 WBC 15.1 H RBC 5.22 H Hgb 12.9 Hct 39.7 MCV 76 L MCH 25 L MCHC 33 RDW 14.7 Plt Count 402 Lymph % (Auto) 5.5 L [place] % (Auto) 7.9 H Eos % (Auto) 0.1 Baso % (Auto) 0.1 Lymph # 0.8 L [place] # 1.2 H Eos # 0.0 Baso # 0.0 Seg Neutrophils % 86.4 H Seg Neutrophils # 13.0 H Laboratory Results - last 24 hr 05/21/18 05/21/18 05/21/18 10:42 10:42 10:54 WBC 15.1 H RBC 5.22 H Hgb 12.9 Hct 39.7 MCV 76 L MCH 25 L MCHC 33 RDW 14.7 Plt Count 402 Lymph % (Auto) 5.5 L [place] % (Auto) 7.9 H Eos % (Auto) 0.1 Baso % (Auto) 0.1 Lymph # 0.8 L [place] # 1.2 H Eos # 0.0 Baso # 0.0 Seg Neutrophils % 86.4 H Seg Neutrophils # 13.0 H PT 13.1 INR 0.95 APTT 26.9 Sodium TNR Potassium TNR Chloride TNR Carbon Dioxide TNR Anion Gap TNR BUN TNR Creatinine TNR Estimated GFR TNR BUN/Creatinine Ratio TNR Glucose TNR Lactic Acid Calcium TNR Magnesium TNR Total Bilirubin TNR Direct Bilirubin TNR Indirect Bilirubin TNR AST TNR ALT TNR Alkaline Phosphatase TNR Total Creatine Kinase TNR CK-MB (CK-2) TNR CK-MB (CK-2) Rel Index TNR Troponin T TNR NT-Pro-B Natriuret Pep TNR Total Protein TNR Albumin TNR Albumin/Globulin Ratio TNR Lipase Blood Type Antibody Screen 05/21/18 05/21/18 05/21/18 11:02 11:10 11:37 WBC RBC Hgb Hct MCV MCH MCHC RDW Plt Count Lymph % (Auto) [place] % (Auto) Eos % (Auto) Baso % (Auto) Lymph # [place] # Eos # Baso # Seg Neutrophils % Seg Neutrophils # PT INR APTT Sodium 141 Potassium 4.3 Chloride 99.4 Carbon Dioxide 25 Anion Gap 21 BUN 14 Creatinine 0.7 L Estimated GFR > 60 BUN/Creatinine Ratio 20 Glucose 118 H Lactic Acid Calcium 8.8 Magnesium Total Bilirubin Direct Bilirubin Indirect Bilirubin AST ALT Alkaline Phosphatase Total Creatine Kinase 40 L CK-MB (CK-2) < 1.0 CK-MB (CK-2) Rel Index 2.5 Troponin T < 0.010 NT-Pro-B Natriuret Pep 343.1 Total Protein Albumin Albumin/Globulin Ratio Lipase 24 Blood Type O POSITIVE Antibody Screen Negative 05/21/18 11:37 WBC RBC Hgb Hct MCV MCH MCHC RDW Plt Count Lymph % (Auto) [place] % (Auto) Eos % (Auto) Baso % (Auto) Lymph # [place] # Eos # Baso # Seg Neutrophils % Seg Neutrophils # PT INR APTT Sodium Potassium Chloride Carbon Dioxide Anion Gap BUN Creatinine Estimated GFR BUN/Creatinine Ratio Glucose Lactic Acid 2.20 H* Calcium Magnesium Total Bilirubin Direct Bilirubin Indirect Bilirubin AST ALT Alkaline Phosphatase Total Creatine Kinase CK-MB (CK-2) CK-MB (CK-2) Rel Index Troponin T NT-Pro-B Natriuret Pep Total Protein Albumin Albumin/Globulin Ratio Lipase Blood Type Antibody Screen - EKG Data -: EKG Interpreted by Me EKG shows normal: sinus rhythm Rate: tachycardia - EKG Data Interpretation: other (serial EKGs were obtained. They both show new J-point elevation in the high lateral leads with nonspecific repolarization abnormality.) - Radiology Data Radiology results: report reviewed (CT angiogram was negative for PE positive for pericardial fluid see report) interpreted by me: Cardiac silhouette looked a bit flaccid-shaped but it was a poor inspiration. There was no reuben pulmonary infiltrate. Critical Care Time: Yes Critical care time in (mins) excluding proc time.: 90 Critical care attestation.: If time is entered above; I have spent that time in minutes in the direct care of this critically ill patient, excluding procedure time. ED Disposition Clinical Impression: Pericardial effusion, Accelerated hypertension, History of gastric ulcer Pericarditis Qualifiers: Pericarditis type: associated with systemic lupus erythematosus Chronicity: acute Qualified Code(s): M32.12 - Pericarditis in systemic lupus erythematosus Chest pain Qualifiers: Chest pain type: unspecified Qualified Code(s): R07.9 - Chest pain, unspecified SLE (systemic lupus erythematosus) Qualifiers: Systemic lupus erythematosus type: unspecified Systemic lupus erythematosus organ involvement: pericarditis Qualified Code(s): M32.12 - Pericarditis in systemic lupus erythematosus Disposition: 09 OP ADMIT IP TO THIS HOSP Is pt being admited?: Yes Does the pt Need Aspirin: Yes Condition: Stable Instructions: Chest Pain (ED), Hypertension (ED) Referrals: PRIMARY CARE, [Primary Care Provider] - 3-5 Days Time of Disposition: 14:56
[2018-05-21] MEDS ORDERED: MORPHINE IV ONE ×2 (11:02→11:43)
[2018-05-21] MEDS ORDERED: ZOFRAN IV ONE (11:02)
[2018-05-21] MEDS ORDERED: MORPHINE ONE (11:04)
[2018-05-21] MEDS ORDERED: ZOFRAN ONE (11:04)
[2018-05-21 11:20] LABS: BUN/Creatinine Ratio TNR; Blood Urea Nitrogen TNR mg/dL (9-20)
[2018-05-21 11:21] LABS: Alanine Aminotransferase TNR units/L (7-56); Albumin TNR g/dL (3.9-5); Bilirubin,Direct TNR mg/dL (0-0.2); Calcium TNR mg/dL (8.4-10.2); Creatine Kinase MB TNR ng/mL (0.0-4.0); Hemolysis Index TNR
[2018-05-21 11:29] LABS: INR 0.95 (0.87-1.13)
[2018-05-21 11:30] LABS: Partial Thromboplastin Time 26.9 Sec. (24.2-36.6)
--- NOTE | 2018-05-21 11:30 | XRay Report ---
AP CHEST: HISTORY: Hypertension There is poor inspiration. Heart size and pulmonary vascularity are within normal limits. There is poor visualization of the left hemidiaphragm and left costophrenic angle which appears to represent partial atelectasis in the left lower lobe. No large pleural effusion or pneumothorax. IMPRESSION: Mild atelectatic changes at the left lung base. Otherwise, unremarkable AP chest.
[2018-05-21 12:19] LABS: Creatine Kinase MB < 1.0 ng/mL (0.0-4.0)
[2018-05-21 12:20] LABS: BUN/Creatinine Ratio 20; Blood Urea Nitrogen 14 mg/dL (9-20); Calcium 8.8 mg/dL (8.4-10.2); Hemolysis Index 5
--- NOTE | 2018-05-21 12:46 | Cat Scan Report ---
CTA CHEST: HISTORY: Chest pain radiating to back, and cirrhotic. COMPARISON: 02/03/18. TECHNIQUE: Helical CT in 1.25mm intervals following IV contrast. Pulmonary embolus protocol. Sagittal and coronal reformatted images. Rotational MIP images. FINDINGS: Contrast bolus is satisfactory. No pulmonary embolus is identified. Thyroid gland: Normal. Tracheobronchial tree: Normal. Esophagus: Normal. Heart: Normal size. Pericardium: A large pericardial effusion has developed measuring up to 2 cm in thickness along the free left ventricular wall no obvious pericardial calcifications or nodularity. Mediastinum: No evidence for mediastinal mass or adenopathy. The aorta is within normal limits. Lung Lopes: Patchy infiltrates or atelectasis is present in both lower lobes, left greater than right. No underlying parenchymal lung disease or mass. Pleural Spaces: Trace layering left pleural effusion. No pneumothorax. Musculoskeletal: Intact. IMPRESSION: No evidence for pulmonary embolus. A large pericardial fusion has developed. Pericarditis? Bibasilar infiltrates versus atelectatic changes. Trace left pleural effusion.
--- NOTE | 2018-05-21 13:12 | Consultation ---
History of Present Illness Consult date: 05/21/18 Consult reason: chest pain History of present illness: Patient is a 33-year-old man with a history of lupus, who presents to the [facility] with chest pain. Cardiac consultation was requested. The patient's chest pain is nonanginal. It is pleuritic, positional with movement of his thorax, the patient in his stretcher in the emergency room appears to be laying still, to reduce his chest discomfort. On presentation his blood pressure was elevated 160 systolic, and he is in a mild sinus tachycardia. EKG revealed nonspecific early repolarization changes, nonspecific ST and T-wave of [place], no evidence of acute ischemia or infarction. Initial troponin level was normal. I asked for a chest CT scan, which reported a pericardial effusion. We followed up with an immediate echocardiogram that reveals a small to moderate-sized effusion, mostly posterior to the left ventricle, left ventricular ejection fraction on the lower limits of normal. Past History Past Medical History: hypertension, other (Lupus) Medications and Allergies Allergies Allergy/AdvReac Type Severity Reaction Status Date / Time No Known Allergies Allergy Unverified 02/14/13 18:45 Home Medications Medication Instructions Recorded Confirmed Last Taken Type Antacid [Alum-Mag Hydrox-Simeth 30 ml PO Q4H PRN #1 bottle 02/05/18 Unknown Rx [id number]/5Ml] HYDROcodone/APAP 5-325 [[place] 1 each PO Q8HR #14 tablet 02/05/18 Unknown Rx 5-325 mg TAB] Pantoprazole [Protonix TAB] 40 mg PO QDAY #30 tablet 02/05/18 Unknown Rx Review of Systems Cardiovascular: chest pain, no orthopnea, no palpitations, no rapid/irregular heart beat, no edema, no syncope, no lightheadedness, no shortness of breath Physical Examination Vital Signs Temp Pulse Resp BP Pulse Ox 97.7 F 115 H 22 157/113 97 05/21/18 10:26 05/21/18 10:26 05/21/18 10:26 05/21/18 10:05/21/18 10:26 General appearance: no acute distress HEENT: Positive: PERRL Neck: Positive: neck supple Cardiac: Positive: Regular Rhythm Lungs: Positive: Decreased Breath Sounds Neuro: Positive: Grossly Intact Abdomen: Positive: Soft Male genitourinary: Positive: deferred Skin: Positive: Clear Extremities: Absent: edema Results 05/21/18 10:42 05/21/18 11:37 Cardiac Enzymes 05/21/18 05/21/18 Range/Units 10:42 11:37 AST TNR CK-MB (CK-2) TNR < 1.0 Coagulation 05/21/18 Range/Units 10:54 PT 13.1 (12.2-14.9) Sec. INR 0.95 (0.87-1.13) APTT 26.9 (24.2-36.6) Sec. CBC 05/21/18 Range/Units 10:42 WBC 15.1 H (4.5-11.0) K/mm3 RBC 5.22 H (3.65-5.03) M/mm3 Hgb 12.9 (11.8-15.2) gm/dl Hct 39.7 (35.5-45.6) % Plt Count 402 (140-440) K/mm3 Lymph # 0.8 L (1.2-5.4) K/mm3 [place] # 1.2 H (0.0-0.8) K/mm3 Eos # 0.0 (0.0-0.4) K/mm3 Baso # 0.0 (0.0-0.1) K/mm3 Comprehensive Metabolic Panel 05/21/18 05/21/18 Range/Units 10:42 11:37 Sodium TNR 141 Potassium TNR 4.3 Chloride TNR 99.4 Carbon Dioxide TNR 25 BUN TNR 14 Creatinine TNR 0.7 L Glucose TNR 118 H Calcium TNR 8.8 Direct Bilirubin TNR Indirect Bilirubin TNR AST TNR ALT TNR Alkaline Phosphatase TNR Total Protein TNR Albumin TNR EKG interpretations - Telemetry EKG Rhythm: Sinus Tachycardia Assessment and Plan - Patient Problems (1) Pericardial effusion Current Visit: Yes Status: Acute Plan to address problem: Patient's pericardial effusion is small to moderate, posterior location, will be managed conservatively. Follow-up echocardiogram in 3-5 days. (2) Chest pain Current Visit: No Status: Acute Plan to address problem: Patient has musculoskeletal chest pain, possibly pericarditis although the ECG is not significant for pericarditis, possible costochondritis. The musculoskeletal inflammation may be related to his lupus, we'll defer to inte rna medicine for further workup. Therapy recommended trial of non-steroidal anti-inflammatory agents as indicated.
--- NOTE | 2018-05-21 15:05 | History and Physical Report ---
History of Present Illness Date of examination: 05/21/18 Past History Past Medical History: hypertension, other (Lupus) Medications and Allergies Allergies Allergy/AdvReac Type Severity Reaction Status Date / Time No Known Allergies Allergy Unverified 02/14/13 18:45 Home Medications Medication Instructions Recorded Confirmed Last Taken Type Antacid [Alum-Mag Hydrox-Simeth 30 ml PO Q4H PRN #1 bottle 02/05/18 Unknown Rx [id number]] HYDROcodone/APAP 5-325 [Sisters 1 each PO Q8HR #14 tablet 02/05/18 Unknown Rx 5-325 mg TAB] Pantoprazole [Protonix TAB] 40 mg PO QDAY #30 tablet 02/05/18 Unknown Rx Active Meds: Active Medications Aspirin (Baby Aspirin) 162 mg PO ONCE ONE Stop: 05/21/18 15:31 Ketorolac Tromethamine (Toradol) 30 mg IV Q8H HONORIO Stop: 05/23/18 14:59 Exam - Constitutional Vitals: Temp Pulse Resp BP Pulse Ox 97.7 F 107 H 21 138/95 94 05/21/18 10:26 05/21/18 13:30 05/21/18 13:30 05/21/18 14:00 05/21/18 14:00 Results - Labs CBC & Chem 7: 05/21/18 10:42 05/21/18 11:37 Labs: Laboratory Last Values WBC 15.1 K/mm3 (4.5-11.0) H 05/21/18 10:42 RBC 5.22 M/mm3 (3.65-5.03) H 05/21/18 10:42 Hgb 12.9 gm/dl (11.8-15.2) 05/21/18 10:42 Hct 39.7 % (35.5-45.6) 05/21/18 10:42 MCV 76 fl (84-94) L 05/21/18 10:42 MCH 25 pg (28-32) L 05/21/18 10:42 MCHC 33 % (32-34) 05/21/18 10:42 RDW 14.7 % (13.2-15.2) 05/21/18 10:42 Plt Count 402 K/mm3 (140-440) 05/21/18 10:42 Lymph % (Auto) 5.5 % (13.4-35.0) L 05/21/18 10:42 [place] % (Auto) 7.9 % (0.0-7.3) H 05/21/18 10:42 Eos % (Auto) 0.1 % (0.0-4.3) 05/21/18 10:42 Baso % (Auto) 0.1 % (0.0-1.8) 05/21/18 10:42 Lymph # 0.8 K/mm3 (1.2-5.4) L 05/21/18 10:42 [place] # 1.2 K/mm3 (0.0-0.8) H 05/21/18 10:42 Eos # 0.0 K/mm3 (0.0-0.4) 05/21/18 10:42 Baso # 0.0 K/mm3 (0.0-0.1) 05/21/18 10:42 Seg Neutrophils % 86.4 % (40.0-70.0) H 05/21/18 10:42 Seg Neutrophils # 13.0 K/mm3 (1.8-7.7) H 05/21/18 10:42 PT 13.1 Sec. (12.2-14.9) 05/21/18 10:54 INR 0.95 (0.87-1.13) 05/21/18 10:54 APTT 26.9 Sec. (24.2-36.6) 05/21/18 10:54 Sodium 141 mmol/L (137-145) 05/21/18 11:37 Potassium 4.3 mmol/L (3.6-5.0) 05/21/18 11:37 Chloride 99.4 mmol/L (98-107) 05/21/18 11:37 Carbon Dioxide 25 mmol/L (22-30) 05/21/18 11:37 Anion Gap 21 mmol/L 05/21/18 11:37 BUN 14 mg/dL (9-20) 05/21/18 11:37 Creatinine 0.7 mg/dL (0.8-1.5) L 05/21/18 11:37 Estimated GFR > 60 ml/min 05/21/18 11:37 BUN/Creatinine Ratio 20 % 05/21/18 11:37 Glucose 118 mg/dL (75-100) H 05/21/18 11:37 Lactic Acid 2.20 mmol/L (0.7-2.0) H* 05/21/18 11:37 Calcium 8.8 mg/dL (8.4-10.2) 05/21/18 11:37 Magnesium TNR 05/21/18 10:42 Total Bilirubin TNR 05/21/18 10:42 Direct Bilirubin TNR 05/21/18 10:42 Indirect Bilirubin TNR 05/21/18 10:42 AST TNR 05/21/18 10:42 ALT TNR 05/21/18 10:42 Alkaline Phosphatase TNR 05/21/18 10:42 Total Creatine Kinase 40 units/L (55-170) L 05/21/18 11:37 CK-MB (CK-2) < 1.0 ng/mL (0.0-4.0) 05/21/18 11:37 CK-MB (CK-2) Rel Index 2.5 (0-4) 05/21/18 11:37 Troponin T < 0.010 ng/mL (0.00-0.029) 05/21/18 13:03 NT-Pro-B Natriuret Pep 343.1 pg/mL (0-450) 05/21/18 11:37 Total Protein TNR 05/21/18 10:42 Albumin TNR 05/21/18 10:42 Albumin/Globulin Ratio TNR 05/21/18 10:42 Lipase 24 units/L (13-60) 05/21/18 11:10 Blood Type O POSITIVE 05/21/18 11:02 Antibody Screen Negative 05/21/18 11:02
[2018-05-21] MEDS ORDERED: SODIUM CHLORIDE FLUSH SYRINGE 10 ML IV PRN (15:06)
[2018-05-21] MEDS ORDERED: AMBIEN PO PRN (15:06)
[2018-05-21] MEDS ORDERED: TYLENOL PO PRN (15:06)
[2018-05-21] MEDS ORDERED: ZOFRAN IV PRN (15:06)
[2018-05-21] MEDS ORDERED: BABY ASPIRIN PO ONE (15:30)
[2018-05-21] MEDS: TORADOL IV SCH ×2 (15:48→23:29)
[2018-05-21 15:57] LABS: Bacteria,Urine 1+ /HPF (Negative); Bilirubin,Urine NEG (Negative); Blood,Urine NEG (Negative); Color,Urine Yellow (Yellow); Mucus,Urine FEW /HPF; Protein,Urine <15 mg/dL mg/dL (Negative); WBC,Urine < 1.0 /HPF (0.0-6.0)
[2018-05-21 16:05] LABS: Benzodiazepines Screen,Urine PRESUMPTIVE NEGATIVE; Cocaine Screen,Urine PRESUMPTIVE NEGATIVE; Methadone Screen,Urine PRESUMPTIVE NEGATIVE
[2018-05-21 16:26] LABS: Amphetamine Screen,Urine PRESUMPTIVE POSITIVE; Cannabinoid Screen,Urine PRESUMPTIVE NEGATIVE; Opiate Screen,Urine PRESUMPTIVE POSITIVE
[2018-05-21] MEDS ORDERED: BABY ASPIRIN ONE (16:53)
[2018-05-21] MEDS: DILAUDID IV PRN (21:21)
[2018-05-21] MEDS: SODIUM CHLORIDE FLUSH SYRINGE 10 ML IV SCH (23:30)
[2018-05-22 05:08] LABS: Basophils # (Auto) 0.1 K/mm3 (0.0-0.1); Basophils % (Auto) 0.3 % (0.0-1.8); Eosinophils % (Auto) 0.1 % (0.0-4.3); Hematocrit 34.1 % (35.5-45.6); Hemoglobin 10.9 gm/dl (11.8-15.2); Lymphocytes # (Auto) 1.6 K/mm3 (1.2-5.4); Lymphocytes % (Auto) 9.9 % (13.4-35.0); Mean Corpuscular HGB Conc 32 % (32-34); Mean Corpuscular Volume 76 fl (84-94); Monocytes # (Auto) 1.3 K/mm3 (0.0-0.8); Platelet Count 323 K/mm3 (140-440); Red Blood Count 4.49 M/mm3 (3.65-5.03); Red Cell Distribution Width 14.2 % (13.2-15.2)
--- NOTE | 2018-05-22 05:33 | Event Note ---
Date: 05/21/18 See Dictated H/p in reports Chest pain--Ro NM Pericarditis Lupus
[2018-05-22 05:37] LABS: Alanine Aminotransferase 18 units/L (7-56); Albumin 3.2 g/dL (3.9-5); BUN/Creatinine Ratio 19; Blood Urea Nitrogen 15 mg/dL (9-20); Hemolysis Index 5
--- NOTE | 2018-05-22 06:29 | History and Physical Report ---
CHIEF COMPLAINT: Left-sided chest pain since 6:00 a.m. HISTORY OF PRESENT ILLNESS: A 33-year-old male with history of lupus, comes in for acute onset of left-sided chest pain since 6:00 a.m. Chest pain is sharp and persistent. Better when he lies still. Some shortness of breath present. No radiation. No diaphoresis. No nausea, no vomiting. No similar findings in the past. The patient was here in January and had a stress test which is negative for ischemia and echocardiogram showed LV ejection fraction of 55% to 60%. The patient also had a CT of the chest, which was negative. The patient was supposed to have an EGD on the last visit. Apparently, there was a gastric ulcer in the EGD. Gastric ulcer was biopsied. This was in 01/2018. PAST MEDICAL HISTORY: As mentioned, history of lupus, not being treated. Asthma. Also, gastric ulcer. PAST SURGICAL HISTORY: Umbilical hernia repair. SOCIAL HISTORY: Does not smoke. No alcohol, no recreational drugs. FAMILY HISTORY: Hypertension. CURRENT MEDICATIONS: Protonix 40 mg once a day. REVIEW OF SYSTEMS: Significant for left-sided chest pain, which is better when he lies down. Sharp in nature. Slight shortness of breath present. Otherwise, review of systems negative. PHYSICAL EXAMINATION: GENERAL: Young male, cooperative during examination. VITAL SIGNS: Blood pressure is 115/71, temperature is 98.8, pulse is 98, respirations 10. HEENT: Unremarkable. Pupils equal and reactive. NECK: Supple, no lymphadenopathy, no thyromegaly. LUNGS: Clear to auscultation and percussion. Good air entry. CARDIOVASCULAR SYSTEM: S1, S2 heard. No gallop, no murmur, no rub. Apical impulse in left fifth intercostal space in midclavicular line. ABDOMEN: Soft and benign. No hepatosplenomegaly. No guarding, no rigidity. Hernial orifices are normal. EXTREMITIES: Good pedal pulses. No pedal edema. CENTRAL NERVOUS SYSTEM: Alert and oriented x 4, nonfocal exam. LABORATORY DATA: White count is 15,100, H and H is 12.9 and 39.7, platelet count is 402,000. MCV and MCH is slightly low. Electrolytes are normal. Lactic acid is 2.2. BUN and creatinine is 14 and 0.7. Glucose is 118. Hemoglobin A1c is 6.4. Troponin is negative. Total creatine kinase is 40. Urine specific gravity is more than 1.030. Drug screen is positive for opiates, otherwise negative. DIAGNOSTIC DATA: The patient had echocardiogram with limited views in the Emergency Room. It showed ejection fraction of 50% to 55%. Small to moderate size pleural effusion, not hemodynamically significant. EKG shows nonspecific ST-T wave changes. Heart rate of 86. Chest x-ray was normal. No acute findings. Mild atelectatic changes in the left lung base. Otherwise, unremarkable. CTA of the chest, no evidence of pulmonary embolus. A large pericardial effusion has developed. Bibasilar infiltrates versus atelectasis. Trace left pleural effusion. ASSESSMENT AND PLAN: 1. Chest pain secondary to pericarditis. The patient to be treated with IV Toradol. Discussed with Dr. Gonzáles, the wired sweatband cutter. He informed me his opinion that it is pericarditis. No Lexiscan ordered because he had Lexiscan in 01/2018, which was negative. 2. Lupus. Lupus workup initiated. DsDNA, sed rate, DIALLO ordered. 3. Gastric ulcer. Continue Protonix. 4. Deep venous thrombosis prophylaxis, Lovenox 40 mg subcutaneous daily. JOB# [id number] VSM/NTS
[2018-05-22 07:29] LABS: Calcium 8.5 mg/dL (8.4-10.2)
[2018-05-22] MEDS: TORADOL IV SCH ×3 (08:00→22:11)
[2018-05-22] MEDS: SODIUM CHLORIDE FLUSH SYRINGE 10 ML IV SCH ×3 (08:00→22:11)
[2018-05-22] MEDS: DILAUDID IV PRN ×3 (08:03→19:09)
[2018-05-22] MEDS ORDERED: NON-FORMULARY (Prednisone 10 MG) PO SCH (11:30)
[2018-05-22] MEDS ORDERED: PLAQUENIL 200 MG PO SCH (11:30)
[2018-05-22] MEDS: PROTONIX PO SCH (12:28)
[2018-05-22] MEDS: DELTASONE PO SCH ×2 (12:32→21:06)
[2018-05-22] MEDS: PLAQUENIL PO SCH (12:32)
--- NOTE | 2018-05-22 13:00 | Progress Note ---
Assessment and Plan 1. Acute pericarditis 2. Systemic lupus erythematosus Plan. Echo shows normal left ventricular size and function LV ejection fraction of 50% small posterior pericardial effusion slightly shaky and pericardium. We will recommend continuing analgesic Plaquenil Subjective Date of service: 05/22/18 Principal diagnosis: Chest pains Interval history: Patient still complains of pleuritic chest pain at rest. Objective Vital Signs Temp Pulse Pulse Pulse Pulse Resp Resp 05/22/18 11:58 98.3 F 82 20 05/22/18 09:45 98 H 05/22/18 07:40 98.8 F 95 H 18 05/22/18 04:24 98.6 F 98 H 18 05/21/18 23:59 18 05/21/18 23:55 98.8 F 99 H 20 05/21/18 23:29 16 05/21/18 22:06 99 H 05/21/18 21:51 16 05/21/18 21:21 18 05/21/18 20:29 99.3 F 105 H 18 05/21/18 20:19 18 05/21/18 19:40 111 H 05/21/18 17:57 98.9 F 108 H 20 05/21/18 17:30 98.0 F 65 85 85 85 18 05/21/18 17:10 05/21/18 17:00 05/21/18 16:46 05/21/18 16:30 05/21/18 16:16 05/21/18 16:00 05/21/18 15:46 05/21/18 15:30 05/21/18 15:16 05/21/18 15:00 05/21/18 14:46 05/21/18 14:30 05/21/18 14:16 05/21/18 14:00 05/21/18 13:46 05/21/18 13:30 107 H 21 05/21/18 13:16 107 H 18 05/21/18 13:00 105 H 17 BP BP Pulse Ox 05/22/18 11:58 95/56 99 05/22/18 09:45 05/22/18 07:40 90/53 96 05/22/18 04:24 107/62 94 05/21/18 23:59 05/21/18 23:55 115/71 95 05/21/18 23:29 05/21/18 22:06 115/71 98 05/21/18 21:51 05/21/18 21:21 05/21/18 20:29 148/96 98 05/21/18 20:19 05/21/18 19:40 05/21/18 17:57 132/91 96 05/21/18 17:30 131/60 98 05/21/18 17:10 146/104 95 05/21/18 17:00 146/104 97 05/21/18 16:46 131/94 96 05/21/18 16:30 131/94 96 05/21/18 16:16 138/104 97 05/21/18 16:00 138/104 97 05/21/18 15:46 138/104 96 05/21/18 15:30 146/104 96 05/21/18 15:16 138/104 97 05/21/18 15:00 138/104 97 05/21/18 14:46 138/104 97 05/21/18 14:30 138/104 97 05/21/18 14:16 138/95 94 05/21/18 14:00 138/95 94 05/21/18 13:46 138/95 98 05/21/18 13:30 148/109 97 05/21/18 13:16 128/98 98 05/21/18 13:00 138/95 99 - Physical Examination General: No Apparent Distress HEENT: Positive: PERRL Neck: Positive: neck supple Cardiac: Lungs: Neuro: Positive: Grossly Intact Abdomen: Positive: Soft /Rectal: Normal Prostate, No Masses Skin: Positive: Clear Musculoskeletal: No Fluid Collection, No Pain, Normal Range of Motion Gait: Normal Gait Extremities: Absent: edema - Labs and Meds Cardiac Enzymes 05/22/18 Range/Units 04:44 AST 20 (5-40) units/L CBC 05/22/18 Range/Units 04:44 WBC 16.4 H (4.5-11.0) K/mm3 RBC 4.49 (3.65-5.03) M/mm3 Hgb 10.9 L (11.8-15.2) gm/dl Hct 34.1 L (35.5-45.6) % Plt Count 323 (140-440) K/mm3 Lymph # 1.6 (1.2-5.4) K/mm3 [place] # 1.3 H (0.0-0.8) K/mm3 Eos # 0.0 (0.0-0.4) K/mm3 Baso # 0.1 (0.0-0.1) K/mm3 Comprehensive Metabolic Panel 05/22/18 Range/Units 04:44 Sodium 137 (137-145) mmol/L Potassium 4.0 (3.6-5.0) mmol/L Chloride 97.1 L (98-107) mmol/L Carbon Dioxide 28 (22-30) mmol/L BUN 15 (9-20) mg/dL Creatinine 0.8 (0.8-1.5) mg/dL Glucose 158 H (75-100) mg/dL Calcium 8.5 (8.4-10.2) mg/dL AST 20 (5-40) units/L ALT 18 (7-56) units/L Alkaline Phosphatase 81 (35-129) units/L Total Protein 6.5 (6.3-8.2) g/dL Albumin 3.2 L (3.9-5) g/dL - Telemetry EKG Rhythm: Sinus Rhythm
[2018-05-23] MEDS: TORADOL IV SCH (06:18)
[2018-05-23] MEDS: PROTONIX PO SCH (10:00)
[2018-05-23] MEDS: DILAUDID IV PRN ×3 (10:01→20:46)
[2018-05-23] MEDS: PLAQUENIL PO SCH (10:01)
[2018-05-23] MEDS: DELTASONE PO SCH ×2 (10:01→21:07)
[2018-05-23] MEDS: SODIUM CHLORIDE FLUSH SYRINGE 10 ML IV SCH ×2 (10:02→21:08)
--- NOTE | 2018-05-23 10:38 | Progress Note ---
Assessment and Plan 1. Acute pericarditis chest pains improving 2. Systemic lupus erythematosus Plan. Echo shows normal left ventricular size and function LV ejection fraction of 50% small posterior pericardial effusion slightly shaky and pericardium. We will recommend continuing analgesic Plaquenil Subjective Date of service: 05/23/18 Principal diagnosis: Chest pains Interval history: Patient still complains of pleuritic chest pain at rest. Objective Vital Signs Temp Pulse Resp BP BP Pulse Ox 05/23/18 07:44 98.1 F 74 16 146/82 96 05/23/18 06:00 80 05/23/18 04:04 98.0 F 87 20 134/97 97 05/23/18 00:13 97.0 F L 78 18 109/75 96 05/22/18 21:41 83 05/22/18 19:52 99.6 F 86 20 113/69 98 05/22/18 16:10 98.0 F 90 20 109/64 98 05/22/18 11:58 98.3 F 82 20 95/56 99 - Physical Examination General: No Apparent Distress HEENT: Positive: PERRL Neck: Positive: neck supple Cardiac: Positive: Regular Rate, S1/S2, S3, PMI, Dilated, Laterally Displaced Lungs: Positive: clear to auscultation, No Wheeze, Rales, Rhonchi Neuro: Positive: Grossly Intact Abdomen: Positive: Soft /Rectal: Normal Prostate, No Masses Skin: Positive: Clear Musculoskeletal: No Fluid Collection, No Pain, Normal Range of Motion Gait: Normal Gait Extremities: Absent: edema
--- NOTE | 2018-05-23 15:49 | Progress Note ---
Assessment and Plan Assessment and plan: Patient is a with a history of lupus, asthma and gastric ulcer who presents with left sided chest pains. Acute pericarditis: Cardiology is following, recommends NSAIDS SLE: continue home steroids, plaquenil, if not better will consider higher steroid dose PUD: treat with PPI DVT prophylaxis: scd only due to history fo PUD/gastric ulcer History Interval history: Patient was seen and examined. Follow-up on current diagnosis of chest pains, pleuric. Overnight uneventful. Patient denies any shortness breath, nausea/vomiting or severe headaches. Imaging, nursing note, chart, labs and old chart reviewed. Discussed with patient with mom and dad at bedside. Hospitalist Physical - Physical exam Narrative exam: Gen: WDWN, NAD, Awake, Alert, Orientated HEENT: NCAT, EOMI, PERRL, OP Clear Neck: supple, no adenopathy, no thyromegaly, no JVD CVS/Heart: RRR, normal S1S2, pulses present bilaterally Chest/Lungs: CTA B, Symmetrical chest expansion, good air entry bilaterally, reproducible chest wall tenderness GI/Abdomen: soft, NTND, good bowel sounds, no guarding or rebound /Bladder: no suprapubic tenderness, no CVA or paraspinal tenderness Extermity/Skin: no c/c/e, no obvious rash MSK: FROM x 4 Neuro: CN 2-12 grossly intact, no new focal deficits Psych: calm - Constitutional Vitals: Temp Pulse Resp BP Pulse Ox 98.0 F 68 18 132/84 99 05/23/18 12:00 05/23/18 12:00 05/23/18 12:00 05/23/18 12:00 05/23/18 12:00 General appearance: Present: no acute distress Results - Labs CBC & Chem 7: 05/22/18 04:44 05/22/18 04:44 Labs: Laboratory Last Values WBC 16.4 K/mm3 (4.5-11.0) H 05/22/18 04:44 RBC 4.49 M/mm3 (3.65-5.03) 05/22/18 04:44 Hgb 10.9 gm/dl (11.8-15.2) L 05/22/18 04:44 Hct 34.1 % (35.5-45.6) L 05/22/18 04:44 MCV 76 fl (84-94) L 05/22/18 04:44 MCH 24 pg (28-32) L 05/22/18 04:44 MCHC 32 % (32-34) 05/22/18 04:44 RDW 14.2 % (13.2-15.2) 05/22/18 04:44 Plt Count 323 K/mm3 (140-440) 05/22/18 04:44 Lymph % (Auto) 9.9 % (13.4-35.0) L 05/22/18 04:44 [place] % (Auto) 8.0 % (0.0-7.3) H 05/22/18 04:44 Eos % (Auto) 0.1 % (0.0-4.3) 05/22/18 04:44 Baso % (Auto) 0.3 % (0.0-1.8) 05/22/18 04:44 Lymph # 1.6 K/mm3 (1.2-5.4) 05/22/18 04:44 [place] # 1.3 K/mm3 (0.0-0.8) H 05/22/18 04:44 Eos # 0.0 K/mm3 (0.0-0.4) 05/22/18 04:44 Baso # 0.1 K/mm3 (0.0-0.1) 05/22/18 04:44 Seg Neutrophils % 81.7 % (40.0-70.0) H 05/22/18 04:44 Seg Neutrophils # 13.4 K/mm3 (1.8-7.7) H 05/22/18 04:44 ESR 42 mm/Hr (0-20) 05/21/18 10:42 PT 13.1 Sec. (12.2-14.9) 05/21/18 10:54 INR 0.95 (0.87-1.13) 05/21/18 10:54 APTT 26.9 Sec. (24.2-36.6) 05/21/18 10:54 Sodium 137 mmol/L (137-145) 05/22/18 04:44 Potassium 4.0 mmol/L (3.6-5.0) 05/22/18 04:44 Chloride 97.1 mmol/L (98-107) L 05/22/18 04:44 Carbon Dioxide 28 mmol/L (22-30) 05/22/18 04:44 Anion Gap 16 mmol/L 05/22/18 04:44 BUN 15 mg/dL (9-20) 05/22/18 04:44 Creatinine 0.8 mg/dL (0.8-1.5) 05/22/18 04:44 Estimated GFR > 60 ml/min 05/22/18 04:44 BUN/Creatinine Ratio 19 % 05/22/18 04:44 Glucose 158 mg/dL (75-100) H 05/22/18 04:44 Hemoglobin A1c 6.4 % (4-6) H 05/21/18 15:20 Lactic Acid 1.50 mmol/L (0.7-2.0) 05/21/18 15:20 Calcium 8.5 mg/dL (8.4-10.2) 05/22/18 04:44 Magnesium TNR 05/21/18 10:42 Total Bilirubin 0.30 mg/dL (0.1-1.2) 05/22/18 04:44 Direct Bilirubin TNR 05/21/18 10:42 Indirect Bilirubin TNR 05/21/18 10:42 AST 20 units/L (5-40) 05/22/18 04:44 ALT 18 units/L (7-56) 05/22/18 04:44 Alkaline Phosphatase 81 units/L (35-129) 05/22/18 04:44 Total Creatine Kinase 40 units/L (55-170) L 05/21/18 11:37 CK-MB (CK-2) < 1.0 ng/mL (0.0-4.0) 05/21/18 11:37 CK-MB (CK-2) Rel Index 2.5 (0-4) 05/21/18 11:37 Troponin T < 0.010 ng/mL (0.00-0.029) 05/21/18 16:05 NT-Pro-B Natriuret Pep 343.1 pg/mL (0-450) 05/21/18 11:37 Total Protein 6.5 g/dL (6.3-8.2) 05/22/18 04:44 Albumin 3.2 g/dL (3.9-5) L 05/22/18 04:44 Albumin/Globulin Ratio 1.0 % 05/22/18 04:44 Lipase 24 units/L (13-60) 05/21/18 11:10 Urine Color Yellow (Yellow) 05/21/18 15:25 Urine Turbidity Clear (Clear) 05/21/18 15:25 Urine pH 5.0 (5.0-7.0) 05/21/18 15:25 Ur Specific [place] > 1.030 (1.003-1.030) H 05/21/18 15:25 Urine Protein <15 mg/dl mg/dL (Negative) 05/21/18 15:25 Urine Glucose (UA) Neg mg/dL (Negative) 05/21/18 15:25 Urine Ketones Tr mg/dL (Negative) 05/21/18 15:25 Urine Blood Neg (Negative) 05/21/18 15:25 Urine Nitrite Neg (Negative) 05/21/18 15:25 Urine Bilirubin Neg (Negative) 05/21/18 15:25 Urine Urobilinogen 2.0 mg/dL (<2.0) 05/21/18 15:25 Ur Leukocyte Esterase Neg (Negative) 05/21/18 15:25 Urine WBC (Auto) < 1.0 /HPF (0.0-6.0) 05/21/18 15:25 Urine RBC (Auto) 1.0 /HPF (0.0-6.0) 05/21/18 15:25 Urine Bacteria (Auto) 1+ /HPF (Negative) 05/21/18 15:25 Urine Mucus Few /HPF 05/21/18 15:25 Urine Opiates Screen Presumptive positive 05/21/18 15:25 Urine Methadone Screen Presumptive negative 05/21/18 15:25 Ur Barbiturates Screen Presumptive negative 05/21/18 15:25 Ur Phencyclidine Scrn Presumptive negative 05/21/18 15:25 Ur Amphetamines Screen Presumptive positive 05/21/18 15:25 U Benzodiazepines Scrn Presumptive negative 05/21/18 15:25 Urine Cocaine Screen Presumptive negative 05/21/18 15:25 U Marijuana (THC) Screen Presumptive negative 05/21/18 15:25 Drugs of Abuse Note Disclamer 05/21/18 15:25 Blood Type O POSITIVE 05/21/18 11:02 Antibody Screen Negative 05/21/18 11:02
[2018-05-24] MEDS: DILAUDID IV PRN ×4 (08:42→20:38)
[2018-05-24] MEDS: PLAQUENIL PO SCH (09:04)
[2018-05-24] MEDS: PROTONIX PO SCH (09:04)
[2018-05-24] MEDS: DELTASONE PO SCH ×2 (09:04→21:12)
[2018-05-24] MEDS: SODIUM CHLORIDE FLUSH SYRINGE 10 ML IV SCH ×2 (09:05→22:00)
--- NOTE | 2018-05-24 11:53 | Progress Note ---
Addendum entered and electronically signed by ZEESHAN CONNOR MD 05/24/18 17:58: Patient's musculoskeletal chest pain has resolved with nonsteroidal anti-inflamm atory agents. Cardiac status is stable, no further cardiac workup. We have recommended follow-up in 3-4 weeks post discharge for a repeat 2-D echocardiogram for pericardial effusion. Original Note: Assessment and Plan Pericardial effusion small to moderate, posterior location, will be managed conservatively. Musculoskeletal chest pain History of Lupus Stable cardiac vernon. We will manage conservatively. Follow up echocardiogram will be done as an outpatient. Subjective Date of service: 05/24/18 Principal diagnosis: Chest pains Interval history: Patient reports less chest pain. No distress noted. Objective Vital Signs Temp Pulse Resp BP Pulse Ox 05/24/18 09:02 98.7 F 73 18 135/92 94 05/24/18 04:37 97.9 F 76 17 130/94 96 05/23/18 23:48 98.6 F 17 140/87 05/23/18 20:00 84 05/23/18 19:52 98.1 F 17 113/77 05/23/18 17:12 98.0 F 82 20 121/77 96 05/23/18 12:00 98.0 F 68 18 132/84 99 - Physical Examination General: No Apparent Distress HEENT: Positive: PERRL Neck: Positive: trachea midline Cardiac: Positive: Reg Rate and Rhythm Lungs: Positive: Decreased Breath Sounds Neuro: Positive: Grossly Intact Abdomen: Positive: Soft Extremities: Absent: edema
--- NOTE | 2018-05-24 12:53 | Progress Note ---
Assessment and Plan Assessment and plan: Patient is a with a history of lupus, asthma and gastric ulcer who presents with left sided chest pains. Acute pericarditis: Cardiology is following, recommends NSAIDS SLE: continue home steroids, plaquenil, if not better will consider higher steroid dose PUD: treat with PPI DVT prophylaxis: scd only due to history fo PUD/gastric ulcer new issue is epigastric abd pains, 02/05/2018 he had 4mm white base gastric ulcer on EGD by Dr. Whitney: consult GI History Interval history: Patient was seen and examined. Follow-up on current diagnosis of chest pains, pleuric. Overnight uneventful. Patient denies any shortness breath, nausea/vomiting or severe headaches. Imaging, nursing note, chart, labs and old chart reviewed. Discussed with patient with mom and dad at bedside. Hospitalist Physical - Physical exam Narrative exam: Gen: WDWN, NAD, Awake, Alert, Orientated HEENT: NCAT, EOMI, PERRL, OP Clear Neck: supple, no adenopathy, no thyromegaly, no JVD CVS/Heart: RRR, normal S1S2, pulses present bilaterally Chest/Lungs: CTA B, Symmetrical chest expansion, good air entry bilaterally, reproducible chest wall tenderness GI/Abdomen: soft, epigastric abd tenderness, good bowel sounds, no guarding or rebound /Bladder: no suprapubic tenderness, no CVA or paraspinal tenderness Extermity/Skin: no c/c/e, no obvious rash MSK: FROM x 4 Neuro: CN 2-12 grossly intact, no new focal deficits Psych: calm - Constitutional Vitals: Temp Pulse Resp BP Pulse Ox 98.7 F 73 18 135/92 94 05/24/18 09:02 05/24/18 09:02 05/24/18 09:02 05/24/18 09:02 05/24/18 09:02 General appearance: Present: no acute distress Results - Labs CBC & Chem 7: 05/22/18 04:44 05/22/18 04:44 Labs: Laboratory Last Values WBC 16.4 K/mm3 (4.5-11.0) H 05/22/18 04:44 RBC 4.49 M/mm3 (3.65-5.03) 05/22/18 04:44 Hgb 10.9 gm/dl (11.8-15.2) L 05/22/18 04:44 Hct 34.1 % (35.5-45.6) L 05/22/18 04:44 MCV 76 fl (84-94) L 05/22/18 04:44 MCH 24 pg (28-32) L 05/22/18 04:44 MCHC 32 % (32-34) 05/22/18 04:44 RDW 14.2 % (13.2-15.2) 05/22/18 04:44 Plt Count 323 K/mm3 (140-440) 05/22/18 04:44 Lymph % (Auto) 9.9 % (13.4-35.0) L 05/22/18 04:44 [place] % (Auto) 8.0 % (0.0-7.3) H 05/22/18 04:44 Eos % (Auto) 0.1 % (0.0-4.3) 05/22/18 04:44 Baso % (Auto) 0.3 % (0.0-1.8) 05/22/18 04:44 Lymph # 1.6 K/mm3 (1.2-5.4) 05/22/18 04:44 [place] # 1.3 K/mm3 (0.0-0.8) H 05/22/18 04:44 Eos # 0.0 K/mm3 (0.0-0.4) 05/22/18 04:44 Baso # 0.1 K/mm3 (0.0-0.1) 05/22/18 04:44 Seg Neutrophils % 81.7 % (40.0-70.0) H 05/22/18 04:44 Seg Neutrophils # 13.4 K/mm3 (1.8-7.7) H 05/22/18 04:44 ESR 42 mm/Hr (0-20) 05/21/18 10:42 PT 13.1 Sec. (12.2-14.9) 05/21/18 10:54 INR 0.95 (0.87-1.13) 05/21/18 10:54 APTT 26.9 Sec. (24.2-36.6) 05/21/18 10:54 Sodium 137 mmol/L (137-145) 05/22/18 04:44 Potassium 4.0 mmol/L (3.6-5.0) 05/22/18 04:44 Chloride 97.1 mmol/L (98-107) L 05/22/18 04:44 Carbon Dioxide 28 mmol/L (22-30) 05/22/18 04:44 Anion Gap 16 mmol/L 05/22/18 04:44 BUN 15 mg/dL (9-20) 05/22/18 04:44 Creatinine 0.8 mg/dL (0.8-1.5) 05/22/18 04:44 Estimated GFR > 60 ml/min 05/22/18 04:44 BUN/Creatinine Ratio 19 % 05/22/18 04:44 Glucose 158 mg/dL (75-100) H 05/22/18 04:44 Hemoglobin A1c 6.4 % (4-6) H 05/21/18 15:20 Lactic Acid 1.50 mmol/L (0.7-2.0) 05/21/18 15:20 Calcium 8.5 mg/dL (8.4-10.2) 05/22/18 04:44 Magnesium TNR 05/21/18 10:42 Total Bilirubin 0.30 mg/dL (0.1-1.2) 05/22/18 04:44 Direct Bilirubin TNR 05/21/18 10:42 Indirect Bilirubin TNR 05/21/18 10:42 AST 20 units/L (5-40) 05/22/18 04:44 ALT 18 units/L (7-56) 05/22/18 04:44 Alkaline Phosphatase 81 units/L (35-129) 05/22/18 04:44 Total Creatine Kinase 40 units/L (55-170) L 05/21/18 11:37 CK-MB (CK-2) < 1.0 ng/mL (0.0-4.0) 05/21/18 11:37 CK-MB (CK-2) Rel Index 2.5 (0-4) 05/21/18 11:37 Troponin T < 0.010 ng/mL (0.00-0.029) 05/21/18 16:05 NT-Pro-B Natriuret Pep 343.1 pg/mL (0-450) 05/21/18 11:37 Total Protein 6.5 g/dL (6.3-8.2) 05/22/18 04:44 Albumin 3.2 g/dL (3.9-5) L 05/22/18 04:44 Albumin/Globulin Ratio 1.0 % 05/22/18 04:44 Lipase 24 units/L (13-60) 05/21/18 11:10 Urine Color Yellow (Yellow) 05/21/18 15:25 Urine Turbidity Clear (Clear) 05/21/18 15:25 Urine pH 5.0 (5.0-7.0) 05/21/18 15:25 Ur Specific [place] > 1.030 (1.003-1.030) H 05/21/18 15:25 Urine Protein <15 mg/dl mg/dL (Negative) 05/21/18 15:25 Urine Glucose (UA) Neg mg/dL (Negative) 05/21/18 15:25 Urine Ketones Tr mg/dL (Negative) 05/21/18 15:25 Urine Blood Neg (Negative) 05/21/18 15:25 Urine Nitrite Neg (Negative) 05/21/18 15:25 Urine Bilirubin Neg (Negative) 05/21/18 15:25 Urine Urobilinogen 2.0 mg/dL (<2.0) 05/21/18 15:25 Ur Leukocyte Esterase Neg (Negative) 05/21/18 15:25 Urine WBC (Auto) < 1.0 /HPF (0.0-6.0) 05/21/18 15:25 Urine RBC (Auto) 1.0 /HPF (0.0-6.0) 05/21/18 15:25 Urine Bacteria (Auto) 1+ /HPF (Negative) 05/21/18 15:25 Urine Mucus Few /HPF 05/21/18 15:25 Urine Opiates Screen Presumptive positive 05/21/18 15:25 Urine Methadone Screen Presumptive negative 05/21/18 15:25 Ur Barbiturates Screen Presumptive negative 05/21/18 15:25 Ur Phencyclidine Scrn Presumptive negative 05/21/18 15:25 Ur Amphetamines Screen Presumptive positive 05/21/18 15:25 U Benzodiazepines Scrn Presumptive negative 05/21/18 15:25 Urine Cocaine Screen Presumptive negative 05/21/18 15:25 U Marijuana (THC) Screen Presumptive negative 05/21/18 15:25 Drugs of Abuse Note Disclamer 05/21/18 15:25 Blood Type O POSITIVE 05/21/18 11:02 Antibody Screen Negative 05/21/18 11:02
--- NOTE | 2018-05-24 14:59 | Gastroenterology Consultation ---
Addendum entered and electronically signed by PAIGE WHITNEY MD 05/24/18 17:39: I have personally interviewed and examined the patient. Likely recurrent PUD from overuse of NSAIDs. Will double PPI, and plan EGD if needed (if symptoms fail to resolve). Original Note: History of Present Illness - Reason for Consult Consult date: 05/24/18 abdominal pain Requesting physician: NAVJOT BRAY - History of Present Illness Patient is a 33 y/o male with PMH of lupus, asthma, and PUD who presented to ED with c/o CP (prior cardiac workup 01/2018 negative) and was admitted for acute pericarditis. He was given NSAIDs for treatment (toradol) per cardiology recommendations and has since developed epigastric abd pain to which GI has been consulted. Patient is previously known to our service from a consult in January for similar symptoms. He underwent an EGD at that time on 02/05/[address] Whitney that showed a 4mm white base gastric ulcer (bx negative for H.pylori/malignancy) with recommendations for daily PPI and follow up in clinic to which patient has yet to do. This afternoon patient was resting in bed w/o acute distress. He reports intermittent epigastric pain described as burning. Pain is non-radiating and worse after eating but is currently tolerating diet. Denies fever, SOB, wt loss, N/V, signs of bleeding (hematemesis, melena, or hematochezia), or LGI symptoms such as diarrhea or constipation. States he has been compliant with taking PPI daily but has also been taking Naproxen and occasional ASA for lupus at home. Past History Past Medical History: hypertension, other (Lupus, PUD) Past Surgical History: No surgical history, Other (EGD 02/05/18 revealed gastric ulcer) Social history: denies: smoking, alcohol abuse Family history: no significant family history Medications and Allergies Allergies Allergy/AdvReac Type Severity Reaction Status Date / Time No Known Allergies Allergy Unverified 02/14/13 18:45 Home Medications Medication Instructions Recorded Confirmed Last Taken Type Antacid [Alum-Mag Hydrox-Simeth 30 ml PO Q4H PRN #1 bottle 02/05/18 05/21/18 Unknown Rx [id number]] HYDROcodone/APAP 5-325 [[place] 1 each PO Q8HR #14 tablet 02/05/18 05/21/18 Unknown Rx 5-325 mg TAB] Pantoprazole [Protonix TAB] 40 mg PO QDAY #30 tablet 02/05/18 05/21/18 Unknown Rx Plaquenil 200 mg PO DAILY 05/21/18 05/21/18 05/21/18 10:00 History Prednisone 10 mg PO BID 05/21/18 05/21/18 05/21/18 10:00 History Active Meds: Active Medications Acetaminophen (Tylenol) 650 mg PO Q4H PRN PRN Reason: Pain MILD(1-3)/Fever >100.5/NAIR Hydromorphone HCl (Dilaudid) 0.5 mg IV Q3H PRN PRN Reason: Pain , Severe (7-10) Last Admin: 05/24/18 13:32 Dose: 0.5 mg Documented by: Hydroxychloroquine Sulfate (Plaquenil) 200 mg PO DAILY [facility] Last Admin: 05/24/18 09:04 Dose: 200 mg Documented by: Ondansetron HCl (Zofran) 4 mg IV Q8H PRN PRN Reason: Nausea And Vomiting Pantoprazole Sodium (Protonix) 40 mg PO QDAY [facility] Last Admin: 05/24/18 09:04 Dose: 40 mg Documented by: Prednisone (Deltasone) 10 mg PO BID [facility] Last Admin: 05/24/18 09:04 Dose: 10 mg Documented by: Sodium Chloride (Sodium Chloride Flush Syringe 10 Ml) 10 ml IV BID [facility] Last Admin: 05/24/18 09:05 Dose: 10 ml Documented by: Sodium Chloride (Sodium Chloride Flush Syringe 10 Ml) 10 ml IV PRN PRN PRN Reason: LINE FLUSH Zolpidem Tartrate (Ambien) 5 mg PO QHS PRN PRN Reason: Insomnia medications reviewed/updated as required Review of Systems - Review of Systems All systems: negative Gastrointestinal: abdominal pain (epigastric) Exam - Constitutional Vital Signs: Temp Pulse Resp BP Pulse Ox 98.7 F 73 18 135/92 94 05/24/18 09:02 05/24/18 09:02 05/24/18 09:02 05/24/18 09:02 05/24/18 09:02 General appearance: no acute distress - Respiratory Respiratory: bilateral: CTA - Cardiovascular Rhythm: regular Heart Sounds: Present: S1 & S2 - Gastrointestinal General gastrointestinal: Present: soft, tender (slight TTP in epigastric area), non-distended, normal bowel sounds - Neurologic Neurological: alert and oriented x3 - Labs CBC & Chem 7: 05/22/18 04:44 05/22/18 04:44 Assessment and Plan 1.epigastric pain 2.PUD -afebrile -WBC 16.5 -H/H 10.9/34.1- continue to monitor/transfuse as needed -LFTs and lipase WNL -patient c/o epigastric pain which developed yesterday after being given Toradol for his CP (acute pericarditis) -EGD 02/05/18 that revealed 4mm white base gastric ulcer (bx negative for H.pylori/malignancy) -etiology-likely 2/2 ulcer vs other -clinically, patient is stable. Denies N/V or signs of bleeding. Tolerating diet. -increase dose of PPI to BID -avoid NSAIDs -no plans for repeat EGD at this time (will consider based on progress) -continue supportive care -further recommendation to follow 3.acute pericarditis 4.SLE
[2018-05-24] MEDS: PROTONIX IV SCH (21:12)
[2018-05-25] MEDS: DILAUDID IV PRN ×3 (02:03→13:28)
[2018-05-25] MEDS: SODIUM CHLORIDE FLUSH SYRINGE 10 ML IV SCH (09:28)
[2018-05-25] MEDS: DELTASONE PO SCH (09:28)
[2018-05-25] MEDS: PROTONIX IV SCH (09:28)
[2018-05-25] MEDS: PLAQUENIL PO SCH (09:28)
--- NOTE | 2018-05-25 11:32 | Progress Note ---
Addendum entered and electronically signed by ZEESHAN CONNOR MD 05/25/18 14:20: Cardiac status is stable, patient is okay for cardiac discharge, follow-up in 3- 4 weeks for outpatient echocardiogram. Original Note: Assessment and Plan Epigastric pain -resolved -EGD 02/05/18 that revealed 4mm white base gastric ulcer Pericardial effusion small to moderate, posterior location, will be managed conservatively. Musculoskeletal chest pain -resolved History of Lupus Recommendations: Stable cardiac vernon. We will manage conservatively. Follow up echocardiogram will be done as an outpatient in 3-4 weeks. Subjective Date of service: 05/25/18 Principal diagnosis: Chest pains Interval history: Patient reports less chest pain. No distress noted. Objective Vital Signs Temp Pulse Resp BP Pulse Ox 05/25/18 08:18 97.9 F 87 18 123/88 92 05/25/18 04:46 98.1 F 88 17 115/74 95 05/25/18 00:07 98.5 F 99 H 16 116/79 95 05/24/18 19:39 98.2 F 17 132/89 05/24/18 19:24 92 H 05/24/18 13:09 83 100 05/24/18 13:08 98.2 F 83 118/80 99 - Physical Examination General: No Apparent Distress HEENT: Positive: PERRL Neck: Positive: trachea midline Cardiac: Positive: Reg Rate and Rhythm Lungs: Positive: Decreased Breath Sounds Neuro: Positive: Grossly Intact Abdomen: Positive: Soft Musculoskeletal: Normal Range of Motion Extremities: Absent: edema
[2018-05-25 12:34] VITALS: BP 119/91
--- NOTE | 2018-05-25 13:20 | Gastroenterology Progress Note ---
Addendum entered and electronically signed by PAIGE PALMA MD 05/25/18 19:22: I have personally interviewed and examined the patient. I agree with A/P. Patient should refrain from overuse of NSAIDs. Original Note: Assessment and Plan 1.epigastric pain 2.H/o PUD (EGD 02/05/18 that revealed 4mm white base gastric ulcer (bx negative for H.pylori/malignancy)) -patient developed epigastric pain after being given Toradol for CP (acute pericarditis) -etiology-likely recurrent PUD from overuse of NSAIDs -clinically, patient reports feeling better today with epigastric pain improved. Denies N/V or signs of bleeding. Tolerating diet. -no plan for scope -continue high dose PPI -avoid NSAIDs -continue supportive care -patient okay to be d/c per GI standpoint on PPI BID with follow up in clinic in ~2 weeks -will sign off, please call if needed 3.acute pericarditis-cardiology following 4.SLE Subjective Date of service: 05/25/18 Principal diagnosis: epigastric pain Interval history: Patient w/o acute distress or events overnight. Reports feeling better today with epigastric pain improved. Denies N/V. Tolerating diet. Objective - Constitutional Vitals: Temp Pulse Resp BP Pulse Ox 97.9 F 75 18 119/91 98 05/25/18 12:33 05/25/18 12:33 05/25/18 12:33 05/25/18 12:33 05/25/18 12:33 General appearance: no acute distress - Respiratory Respiratory: bilateral: CTA - Cardiovascular Rhythm: regular Heart Sounds: Present: S1 & S2 - Gastrointestinal General gastrointestinal: Present: soft, non-tender, non-distended, normal bowel sounds - Neurologic Neurological: alert and oriented x3 - Labs CBC & Chem 7: 05/22/18 04:44 05/22/18 04:44
--- NOTE | 2018-05-25 13:47 | Discharge Summary ---
Providers - Providers Date of Admission: 05/21/18 15:06 Date of discharge: 05/25/18 Attending physician: NAVJOT BRAY 05/21/18 12:42 Consult to Case Management [CONS] Urgent Services Needed at Discharge: Senior Business Consultant Notified:: leonidas Was contact made?: Yes If yes, spoke with:: Leonidas Time called:: 12:44 05/22/18 11:25 Consult to Physician [CONS] Routine Comment: Consulting Provider: SHASTA DUONG Physician Instructions: Reason For Exam: pericardititis 05/24/18 12:49 Consult to Physician [CONS] Routine Comment: Consulting Provider: PAIGE PALMA Physician Instructions: Reason For Exam: Abd pains s/p toradol, f/u gastic ulcer Primary care physician: CORPORATE COMPLIANCE DIRECTOR Hospitalization Condition: Stable Hospital course: Patient is a with a history of lupus, asthma and gastric ulcer who presents with left sided chest pains. Acute pericarditis: Cardiology is following, recommends NSAIDS SLE: continue home steroids, plaquenil, if not better will consider higher steroid dose PUD: treat with PPI DVT prophylaxis: scd only due to history fo PUD/gastric ulcer new issue is epigastric abd pains==>PUD, 02/05/2018 he had 4mm white base gastric ulcer on EGD by Dr. Palma: consult GI Disposition: DC-01 TO HOME OR SELFCARE Time spent for discharge: 33 minutes Core Measure Documentation - Palliative Care Palliative Care/ Comfort Measures: Not Applicable - Core Measures Any of the following diagnoses?: none - VTE Discharge Requirements Deep Vein Thrombosis/Pulmonary Embolism Present on Admission: No Has pt received <5 days of overlap therapy or INR<2.0: No Anticoagulant overlap therapy prescribed at discharge: No Contraindication No Overlap Therapy order at DC: Not Indicated Exam - Physical Exam Narrative exam: Gen: WDWN, NAD, Awake, Alert, Orientated HEENT: NCAT, EOMI, PERRL, OP Clear Neck: supple, no adenopathy, no thyromegaly, no JVD CVS/Heart: RRR, normal S1S2, pulses present bilaterally Chest/Lungs: CTA B, Symmetrical chest expansion, good air entry bilaterally, reproducible chest wall tenderness GI/Abdomen: soft, epigastric abd tenderness, good bowel sounds, no guarding or rebound /Bladder: no suprapubic tenderness, no CVA or paraspinal tenderness Extermity/Skin: no c/c/e, no obvious rash MSK: FROM x 4 Neuro: CN 2-12 grossly intact, no new focal deficits Psych: calm - Constitutional Vitals: Temp Pulse Resp BP Pulse Ox 97.9 F 75 18 119/91 98 05/25/18 12:33 05/25/18 12:33 05/25/18 12:33 05/25/18 12:33 05/25/18 12:33 Plan Activity: other (no strenous activity unless cleared by Cardiology) Diet: regular Follow up with: PRIMARY CAREMD [Primary Care Provider] - 3-5 Days ZEESHAN CONNOR MD [Staff Physician] - 7 Days PAIGE PALMA MD [Staff Physician] - 7 Days Prescriptions: HYDROcodone/APAP 5-325 [[place] 5-325 mg TAB] 1 each PO Q8HR #14 tablet Pantoprazole [Protonix] 40 mg PO BID #60 tablet
[2018-05-26 12:33] LABS: ANA Screen, IFA Negative (Negative)
== END 2018-05-25 16:16 | disposition home or self-care (01) | DRG 547 ==
LOC: ED 10:18 → 4A 15:06
PROVIDERS: ADMIT Internal Medicine; ATTEND Internal Medicine
DX: M32.12 Pericarditis in systemic lupus erythematosus (principal); J45.909 Unspecified asthma, uncomplicated; K27.9 Peptic ulcer, site unspecified, unspecified as acute or chronic, without hemorrhage or perforation; I10 Essential (primary) hypertension; T39.8X5A Adverse effect of other nonopioid analgesics and antipyretics, not elsewhere classified, initial encounter; K25.9 Gastric ulcer, unspecified as acute or chronic, without hemorrhage or perforation; Z79.899 Other long term (current) drug therapy; Z87.11 Personal history of peptic ulcer disease; Y92.89 Other specified places as the place of occurrence of the external cause
CPT/HCPCS: 36415; 71045; 71275; 80048; 80053; 80076; 80307; 81001; 82140; 82550; 82553; 83036; 83690; 83880; 84484; 85025; 85610; 85652; 85730; 86038; 86225; 86850; 86900; 86901; 93005; 93010; 93308; 93321; 93325; 99292; G0378; C9113; J1170; J1885; J2270; J2405; J7512; Q9967

== ENCOUNTER 2018-06-15 14:04 | Emergency (ER) | payer OTHER, SELFPAY ==
[2018-06-15] MEDS ORDERED: ZOFRAN IV ONE (14:47)
[2018-06-15] MEDS ORDERED: NACL 0.9% 1000 ML 1,000 ML IV ONE (14:47)
[2018-06-15] MEDS ORDERED: ATIVAN IV ONE (14:47)
[2018-06-15] MEDS ORDERED: TYLENOL PO ONE (14:48)
--- NOTE | 2018-06-15 15:04 | Emergency Department Report ---
ED Abdominal Pain HPI - General Chief Complaint: Medical Clearance Stated Complaint: STOMACH ACHE/WITHDRAWL Time Seen by Provider: 06/15/18 14:20 Source: patient Mode of arrival: Ambulatory Limitations: No Limitations - History of Present Illness Initial Comments: Mr. Teresa is a 33 yo male with hx of SLE, ITP, pericarditis PUD, asthma, depression and opioid dependence who presents with abdominal pain, nausea vomiting diarrhea. He also has shakes chills subjective fever. Mother feels that he is having opioid withdrawal symptoms. His last pill was Thursday. He has used opioids off and on for the past 10 years. He normally buys pills including Suboxone and other pills off the street. He has been hospitalized for treatment and evaluation of pericarditis and peptic ulcer disease at our hospital. Recently discharged earlier this month. Previous hospitalization in January. EGD revealed gastric ulcer attributed to Toradol treatment for pericarditis. He was discharged with 30 pills of an opioid type medicine. Formally received medical care by [facility] under a [employer] medical plan. He is uninsured. He did not qualify for disability or Medicaid health insurance. He does not have a primary care physician. Has been unemployed since 2007 Previous Prescribed Medications since 2004 Plaqunil Prednisone Albuterol Tylenol/Hydrocodone Protonix Methotrexate Vitamin C Fish Oil SHANTE Marion MD Complaint: abdominal pain -: Gradual, days(s) (3) Location: diffuse Radiation: none Severity: moderate Quality: cramping Consistency: constant Improves With: eating Worsens With: nothing Associated Symptoms: nausea, vomiting, diarrhea - Related Data Previous Rx's Medication Instructions Recorded Last Taken Type Acetaminophen [Acetaminophen TAB] 650 mg PO Q4H PRN tablet 05/25/18 Unknown Rx HYDROcodone/APAP 5-325 [[place] 1 each PO Q8HR #14 tablet 05/25/18 Unknown Rx 5-325 mg TAB] Pantoprazole [Protonix] 40 mg PO BID #60 tablet 05/25/18 Unknown Rx Plaquenil 200 mg PO DAILY #30 05/25/18 05/21/18 10:00 Rx Prednisone 10 mg PO BID #60 05/25/18 05/21/18 10:00 Rx LORazepam [Ativan] 1 mg PO TID PRN #10 tablet 06/15/18 Unknown Rx Promethazine [Phenergan TAB] 25 mg PO Q6HR PRN #10 tab 06/15/18 Unknown Rx Allergies Allergy/AdvReac Type Severity Reaction Status Date / Time No Known Allergies Allergy Verified 06/15/18 14:09 ED Review of Systems ROS: Stated complaint: STOMACH ACHE/WITHDRAWL Other details as noted in HPI Comment: All other systems reviewed and negative Constitutional: fever, malaise Gastrointestinal: abdominal pain, nausea, vomiting, diarrhea ED Past Medical Hx - Past Medical History Previous Medical History?: Yes Hx Heart Attack/AMI: No Hx Congestive Heart Failure: No Hx Diabetes: No Hx Asthma: Yes Hx COPD: No Hx HIV: No Additional medical history: Lupus. Gastric ulcer - Surgical History Past Surgical History?: Yes Additional Surgical History: umbilical hernia - Social History Smoking Status: Never Smoker Substance Use Type: Other - Medications Home Medications: Home Medications Medication Instructions Recorded Confirmed Last Taken Type Acetaminophen [Acetaminophen TAB] 650 mg PO Q4H PRN tablet 05/25/18 Unknown Rx HYDROcodone/APAP 5-325 [[place] 1 each PO Q8HR #14 tablet 05/25/18 Unknown Rx 5-325 mg TAB] Pantoprazole [Protonix] 40 mg PO BID #60 tablet 05/25/18 Unknown Rx Plaquenil 200 mg PO DAILY #30 05/25/18 05/21/18 05/21/18 10:00 Rx Prednisone 10 mg PO BID #60 05/25/18 05/21/18 05/21/18 10:00 Rx LORazepam [Ativan] 1 mg PO TID PRN #10 tablet 06/15/18 Unknown Rx Promethazine [Phenergan TAB] 25 mg PO Q6HR PRN #10 tab 06/15/18 Unknown Rx ED Physical Exam - General Limitations: No Limitations General appearance: alert, in no apparent distress, other (nontoxic but appears comfortable) - Head Head exam: Present: atraumatic, normocephalic - Eye Eye exam: Present: normal appearance - ENT ENT exam: Present: mucous membranes moist - Neck Neck exam: Present: normal inspection. Absent: tenderness, meningismus - Respiratory Respiratory exam: Present: normal lung sounds bilaterally. Absent: respiratory distress, wheezes, rales, rhonchi - Cardiovascular Cardiovascular Exam: Present: regular rate, normal rhythm, normal heart sounds. Absent: systolic murmur, diastolic murmur, rubs, gallop - GI/Abdominal GI/Abdominal exam: Present: soft, normal bowel sounds. Absent: distended, tenderness, guarding, rebound - Rectal Rectal exam: Present: deferred - Extremities Exam Extremities exam: Present: normal inspection - Back Exam Back exam: Present: normal inspection - Neurological Exam Neurological exam: Present: alert, oriented X3 - Psychiatric Psychiatric exam: Present: normal affect, normal mood - Skin Skin exam: Present: warm, dry, intact, normal color. Absent: rash ED Course Vital Signs 06/15/18 14:10 Temperature 98.4 F Pulse Rate 106 H Respiratory 18 Rate Blood Pressure 125/96 O2 Sat by Pulse 99 Oximetry ED Medical Decision Making - Lab Data Result diagrams: 06/15/18 14:54 06/15/18 14:54 - Medical Decision Making Mr. Teresa presents with abdominal pain, vomiting diarrhea. Differential diagnosis includes opioid withdrawal, influenza, bacterial enteritis, viral gastroenteritis, pain due to PUD. No signs of peritonitis on physical exam. If CT abdomen and pelvis is normal, Mr. Teresa would be appropriate for discharge home which will be arranged by my colleague. I have prescribed lorazepam and promethazine for opioid withdrawal symptoms. Critical care attestation.: If time is entered above; I have spent that time in minutes in the direct care of this critically ill patient, excluding procedure time. ED Disposition Clinical Impression: Abdominal pain, Opioid dependence Disposition: DC-01 TO HOME OR SELFCARE Is pt being admited?: No Does the pt Need Aspirin: No Condition: Stable Instructions: Acute Abdominal Pain (ED), Opioid Dependence (ED), Opioid Withdrawal (ED) Prescriptions: LORazepam [Ativan] 1 mg PO TID PRN #10 tablet PRN Reason: withdrawal Promethazine [Phenergan TAB] 25 mg PO Q6HR PRN #10 tab PRN Reason: Nausea Referrals: [facility] [Outside] - 3-5 Days
[2018-06-15 15:12] LABS: Basophils # (Auto) 0.1 K/mm3 (0.0-0.1); Basophils % (Auto) 1.2 % (0.0-1.8); Eosinophils # (Auto) 0.2 K/mm3 (0.0-0.4); Eosinophils % (Auto) 2.3 % (0.0-4.3); Hematocrit 49.1 % (35.5-45.6); Hemoglobin 15.7 gm/dl (11.8-15.2); Lymphocytes # (Auto) 2.5 K/mm3 (1.2-5.4); Lymphocytes % (Auto) 29.4 % (13.4-35.0); Mean Corpuscular HGB Conc 32 % (32-34); Mean Corpuscular Volume 75 fl (84-94); Monocytes # (Auto) 0.9 K/mm3 (0.0-0.8); Monocytes % (Auto) 10.2 % (0.0-7.3); Platelet Count 302 K/mm3 (140-440); Red Blood Count 6.54 M/mm3 (3.65-5.03); Red Cell Distribution Width 15.5 % (13.2-15.2)
[2018-06-15] MEDS ORDERED: PROTONIX IV ONE (15:27)
[2018-06-15 15:35] LABS: Alanine Aminotransferase 12 units/L (7-56); BUN/Creatinine Ratio 18; Blood Urea Nitrogen 16 mg/dL (9-20); Hemolysis Index 9
[2018-06-15 15:56] LABS: Bilirubin,Direct < 0.2 mg/dL (0-0.2)
--- NOTE | 2018-06-15 16:33 | Event Note ---
Date: 06/15/18 Frequent admissions for Opiate dependence C/o Abd pain and diarrhea Wants to go to Suboxone clinic Diagnosis Opiate dependence and withdrawal Mother at bedside Willing to administer opiates on a withdrawal schedule plan Percocet 7.5 tid for 3 days then BID for 3 days and then on once a day Protonix 4o mg po qd
--- NOTE | 2018-06-15 17:06 | Cat Scan Report ---
FINAL REPORT EXAM: CT ABDOMEN PELVIS W CON HISTORY: Abdominal Pain TECHNIQUE: CT of the abdomen and pelvis with IV contrast. Coronal and sagittal reconstructed imaging provided. PRIORS: None currently available. FINDINGS: ABDOMEN: Fatty liver. No suspicious enhancement or lesions. Gallbladder, stomach, spleen, pancreas, adrenals, and kidneys are unremarkable. No aortic aneurysm or dissection. [id number] disease. IVC is unremarkable. There is no periaortic or retroperitoneal adenopathy or mass. Sections of the colon are collapsed which limits evaluation for wall thickening. There does appear to be some mild colonic wall thickening without stranding. Mild wall thickening of the terminal ileum noted. Appendix is normal. Small bowel loops demonstrate mild fold and wall thickening. No obstruction. No air-fluid levels. Mesentery is unremarkable. No free air. No free fluid. PELVIS: Bladder is unremarkable. Delayed images are unremarkable. There is no pelvic mass or adenopathy. Inguinal regions are unremarkable. Bones: No suspicious osseous lesions on this limited examination of the skeleton. Metastatic disease better evaluated with bone scan. IMPRESSION: Bowel findings are nonspecific. Differential diagnosis includes enteritis, enterocolitis, diarrhea, a nd normal variation. No obstruction. Fatty liver.
[2018-06-15 19:22] VITALS: BP 120/87
== END 2018-06-15 17:00 | disposition home or self-care (01) ==
LOC: ED 14:04
DX: R10.84 Generalized abdominal pain (principal); F11.20 Opioid dependence, uncomplicated; R11.2 Nausea with vomiting, unspecified; R19.7 Diarrhea, unspecified; J45.909 Unspecified asthma, uncomplicated; F32.9 Major depressive disorder, single episode, unspecified; M32.9 Systemic lupus erythematosus, unspecified
CPT/HCPCS: 36415; 74177; 80048; 80076; 83690; 85025; 96361; 96374; 96375; 99284; C9113; J2060; J2405; J7030; Q9967